=== PATIENT | male | born 1970 | race Caucasian/White ===

== ENCOUNTER 2020-02-18 11:55 | Inpatient (IN) | payer BC, SELFPAY ==
[2020-02-18] VITALS (8 sets, daily range): BP systolic 116–147; BP diastolic 67–90; PULSE 98–120; RESP 18–30; TEMP 36.8–38.7; O2SAT 83–93; BMI 31.6
--- NOTE | 2020-02-18 | XR_ITS ---
EXAMINATION: XR CHEST CLINICAL INFORMATION: SOB. COMPARISON: None TECHNIQUE: Frontal view of the chest was obtained. FINDINGS: Lungs are hypoexpanded with diffuse bilateral patchy opacities in middle and lower lobes. The heart size and pulmonary vascularity is normal. No gross bony abnormality seen. XR/XR chest 1V IMPRESSION: Diffuse bilateral patchy opacities in mid and lower lobes.
--- NOTE | 2020-02-18 | ECG_ITS ---
Test Reason : SOB Blood Pressure : / mmHG Vent. Rate : 097 BPM Atrial Rate : 097 BPM P-R Int : 138 ms QRS Dur : 086 ms QT Int : 346 ms P-R-T Axes : 044 -02 -12 degrees QTc Int : 439 ms Normal sinus rhythm Minimal voltage criteria for LVH, may be normal variant T wave abnormality, consider inferior ischemia Abnormal ECG No previous ECGs available Referred By: Generic ED Physician Electronically Signed By:ROXANA SILVA
[2020-02-18 13:05] LABS: Basophils Percent Auto 0.1 % (0-2); Hematocrit 45.1 % (42-52); Hemoglobin 15.5 g/dl (14.0-18.0); Imm Gran Abs Auto 0.07 X10*3/uL (0.00-0.03); Imm Gran Pct Auto 0.7 % (0.0-0.4); Lymphocytes Absolute Auto 0.6 X10*3/uL (1.2-4.9); MANUAL DIFF FLAG SCAN; Mean Corpuscular HGB Conc 34.4 g/dl (31.0-36.0); Mean Corpuscular Hemoglobin 29.3 pg (27.0-33.0); Mean Corpuscular Volume 85.3 fL (80-98); Mean Platelet Volume 9.4 fL (9.4-12.4); Monocytes Absolute Auto 0.4 X10*3/uL (0.1-1.2); Monocytes Percent Auto 3.5 % (2-11); Neutrophils Absolute Auto 9.6 X10*3/uL (2.0-8.3); Neutrophils Percent Auto 89.7 % (45-73); Platelet Count 301 X10*3/uL (160-400); Red Blood Count 5.29 X10*6/uL (4.60-5.80); Red Cell Distribution Width 12.7 % (11.0-16.0); SCAN SMEAR FLAG 1; White Blood Count 10.7 X10*3/uL (4.8-10.8)
[2020-02-18] MEDS: Azithromycin 500 MG TABLET PO (13:07)
[2020-02-18] MEDS: Acetaminophen 325 MG TABLET 650 MG PO (13:07)
[2020-02-18 13:14] LABS: INTERNATIONAL NORM RATIO 1.2 (0.9-1.1)
[2020-02-18 13:28] LABS: SLIDE REVIEW VERIFIED
[2020-02-18 13:31] LABS: Lactic Acid 3.6 mmol/L (0.5-2.0)
[2020-02-18 13:45] LABS: Alanine Aminotransferase 109 U/L (0-40); Alkaline Phosphatase 69 U/L (39-117); Anion Gap 18 (12-20); Aspartate Amino Transferase 61 U/L (5-37); Bilirubin Direct 0.4 mg/dL (0.0-0.5); Blood Urea Nitrogen 23 mg/dL (9-16); Calcium 8.4 mg/dL (8.4-10.2); Carbon Dioxide 21 mmol/L (22-29); Chloride 102 mmol/L (96-108); Creatinine Clr Calc Pharmacy 100.5; Estimated Glomerular Filt Rate > 60; Glucose Random 121 mg/dL (60-115); Potassium 5.2 mmol/l (3.3-5.1); Sodium 136 mmol/L (135-145); Total Protein 7.1 g/dL (6.5-8.0)
[2020-02-18 14:08] LABS: C Reactive Protein 4.75 mg/dL (< or = 0.50); Lactate Dehydrogenase 461 U/L (118-273)
[2020-02-18 14:13] LABS: D Dimer 525 NG/ML
--- NOTE | 2020-02-18 14:17 | ED_ITS ---
HPI - SOB/Dyspnea General Chief Complaint: Dyspnea Stated Complaint: covid + sob Time Seen by Provider: 02/18/20 13:00 Source: patient Mode of arrival: ambulatory History of Present Illness HPI Narrative: 49-year-old male with past medical history of asthma, COVID-19 positive on 02/13 at [facility], presenting to the ED complaining of worsening SOB, chest discomfort, cough, fever, body aches/chills, nausea/diarrhea x6 days. Patient has been on albuterol/nebulizers, and prednisone outpatient without relief. Denies abdominal pain, vomiting, recent travel, LE edema Suspected caught COVID from COVID-19 positive co-worker MD elicited complaint: shortness of breath and cough Related Data Allergies Allergy/AdvReac Type Severity Reaction Status Date / Time GRASS Allergy Unknown STUFFY NOSE Uncoded 02/18/20 12:37 Review of Systems Review of Systems: Constitutional: No Weight loss, + Fever, + Chills, No Night Sweats, + Fatigue, + Malaise ENT/Mouth: No sore throat, No Rhinorrhea, No Swallowing Difficulty Cardiovascular: + Chest Pain, + SOB, + Dyspnea on Exertion, No Orthopnea, No Edema, No Palpitations Respiratory: + Cough, No Sputum, No Wheezing, + Dyspnea Gastrointestinal: + Nausea, No Vomiting, + Diarrhea, No Constipation, No Abdominal pain Genitourinary: No irregular bleeding, No Dysuria, No Urinary Frequency, No Hematuria Musculoskeletal: No joint pain, + Myalgias, No Joint Swelling Skin: No Skin Lesions, No rash Yes all other systems are reviewed and are negative [facility] Past Medical History Attestation statement: The following information was validated with the patient. Medical History (Updated 02/18/20 @ 12:36 by Celia Singh RN) Asthma Social History Social History Smoking Status: Never smoker Use of substances other than those prescribed or required for medical reasons: No Advance Directives: No Advance Directives Information Provided: No Physical Exam Vital Signs: Vital Signs: Last Vital Signs Temp 101.2 F H 02/18/20 12:58 Pulse 120 H 02/18/20 12:58 Resp 30 H 02/18/20 12:34 BP 126/90 H 02/18/20 12:58 Pulse Ox 90 L 02/18/20 13:00 Body Mass Index 31.6 Const: General: cooperative Orientation/consciousness: patient oriented x3 Limitations: no limitations HENMT: Head: Yes normal to inspection Ears: hearing grossly normal bilaterally General nose exam: Normal external nose present Face and sinus: Yes normal facial exam Eyes: General: appearance normal, both eyes and all related structures EOM: EOMs intact bilaterally Neck: Neck: Yes normal visual inspection and Yes no meningeal signs Resp: Effort & Inspection: labored (Belly breathing), no stridor and tachypneic Auscultation: clear to auscultation bilaterally and crackles (Bibasilar) Cardio: Rate: regular rate and tachycardic Heart sounds: S1 normal heart sound present and S2 normal heart sound present GI: Inspection: Yes normal to inspection Palpation (GI): Soft to palpation, nontender, no guarding and not rigid Skin: Rashes: no rashes Wounds: no wounds Neuro: General: patient oriented x3 and no meningeal signs Extrem: Other: No LE edema or calf tenderness General: Yes normal to inspection Course Course Course Narrative: * no leukocytosis, lactic 3.6 > likely from albuterol and dehydration. Low concern for severe sepsis as viral source. Patient is known COVID-19 positive > holding on sepsis fluids due to COVID-19 infection * LDH/CRP elevated, AST/ALT elevated, d-dimer 525 as expected with COVID-19, low concern for PE at this time * Chest x-ray showing diffuse bilateral patchy opacities in mid and lower lobes > will cover with Ceftriaxone and Azithromycin MDM - SOB/Dyspnea MDM Narrative Medical decision making narrative: 49-year-old male with past medical history of asthma, COVID-19 positive on 02/13 at [facility], presenting to the ED complaining of worsening SOB, cough, fever, body aches/chills, nausea/diarrhea x6 days. On exam tachypneic, tachycardic, febrile, with increased work of breathing and bibasilar crackles, initially satting 83% on room air. Increase to 93% on 4L nasal cannula. Patient is talking in complete sentences with nasal cannula on. Low concern for severe sepsis is likely/known viral etiology/COVID- 19. Lower concern for PE Plan: EKG, labs, CXR, albuterol, magnesium, admission Lab Data Result diagrams: 02/18/20 12:52 02/18/20 12:52 Labs: Lab Results 02/18/20 02/18/20 02/18/20 Range/Units 12:52 12:52 12:52 WBC 10.7 (4.8-10.8) X10*3/uL RBC 5.29 (4.60-5.80) X10*6/uL Hgb 15.5 (14.0-18.0) g/dl Hct 45.1 (42-52) % MCV 85.3 (80-98) fL MCH 29.3 (27.0-33.0) pg MCHC 34.4 (31.0-36.0) g/dl RDW 12.7 (11.0-16.0) % Plt Count 301 (160-400) X10*3/uL MPV 9.4 (9.4-12.4) fL Immature Gran % (Auto) 0.7 H (0.0-0.4) % Neut % (Auto) 89.7 H (45-73) % Lymph % (Auto) 6.0 L (20-40) % Williams % (Auto) 3.5 (2-11) % Eos % (Auto) 0.0 (0-4) % Baso % (Auto) 0.1 (0-2) % Lymph # (Auto) 0.6 L (1.2-4.9) X10*3/uL Williams # (Auto) 0.4 (0.1-1.2) X10*3/uL Eos # (Auto) 0.0 (0.0-0.4) X10*3/uL Baso # (Auto) 0.0 (0.0-0.2) X10*3/uL Abs Immat Gran (auto) 0.07 H (0.00-0.03) X10*3/uL Absolute Neuts (auto) 9.6 H (2.0-8.3) X10*3/uL Absolute Nucleated RBC 0.000 (0.0-0.012) X10*3/uL Nucleated RBC % (auto) 0.0 (0.0-0.2) /100WBC Smear Tech's Comments VERIFIED PT 14.0 H (10.8-13.0) SEC INR 1.2 H (0.9-1.1) APTT 30.0 (24.1-38.0) SEC D-Dimer 525 NG/ML Sodium 136 (135-145) mmol/L Potassium 5.2 H (3.3-5.1) mmol/l Chloride 102 (96-108) mmol/L Carbon Dioxide 21 L (22-29) mmol/L Anion Gap 18 (12-20) BUN 23 H (9-16) mg/dL Creatinine 1.15 (0.5-1.4) mg/dL Estim Creat Clear Calc 100.5 Estimated GFR > 60 Random Glucose 121 H (60-115) mg/dL Lactic Acid (0.5-2.0) mmol/L Calcium 8.4 (8.4-10.2) mg/dL Ferritin 535 H (20-250) ng/mL Total Bilirubin 1.0 (0.0-1.0) mg/dL Direct Bilirubin 0.4 (0.0-0.5) mg/dL AST 61 H (5-37) U/L ALT 109 H (0-40) U/L Alkaline Phosphatase 69 (39-117) U/L Lactate Dehydrogenase 461 H (118-273) U/L C-Reactive Protein 4.75 H (< or = 0.50) mg/dL Total Protein 7.1 (6.5-8.0) g/dL Albumin 4.0 (3.5-5.0) g/dL Procalcitonin ng/mL 02/18/20 02/18/20 Range/Units 12:52 13:48 WBC (4.8-10.8) X10*3/uL RBC (4.60-5.80) X10*6/uL Hgb (14.0-18.0) g/dl Hct (42-52) % MCV (80-98) fL MCH (27.0-33.0) pg MCHC (31.0-36.0) g/dl RDW (11.0-16.0) % Plt Count (160-400) X10*3/uL MPV (9.4-12.4) fL Immature Gran % (Auto) (0.0-0.4) % Neut % (Auto) (45-73) % Lymph % (Auto) (20-40) % Williams % (Auto) (2-11) % Eos % (Auto) (0-4) % Baso % (Auto) (0-2) % Lymph # (Auto) (1.2-4.9) X10*3/uL Williams # (Auto) (0.1-1.2) X10*3/uL Eos # (Auto) (0.0-0.4) X10*3/uL Baso # (Auto) (0.0-0.2) X10*3/uL Abs Immat Gran (auto) (0.00-0.03) X10*3/uL Absolute Neuts (auto) (2.0-8.3) X10*3/uL Absolute Nucleated RBC (0.0-0.012) X10*3/uL Nucleated RBC % (auto) (0.0-0.2) /100WBC Smear Tech's Comments PT (10.8-13.0) SEC INR (0.9-1.1) APTT (24.1-38.0) SEC D-Dimer NG/ML Sodium (135-145) mmol/L Potassium (3.3-5.1) mmol/l Chloride (96-108) mmol/L Carbon Dioxide (22-29) mmol/L Anion Gap (12-20) BUN (9-16) mg/dL Creatinine (0.5-1.4) mg/dL Estim Creat Clear Calc Estimated GFR Random Glucose (60-115) mg/dL Lactic Acid 3.6 H* (0.5-2.0) mmol/L Calcium (8.4-10.2) mg/dL Ferritin (20-250) ng/mL Total Bilirubin (0.0-1.0) mg/dL Direct Bilirubin (0.0-0.5) mg/dL AST (5-37) U/L ALT (0-40) U/L Alkaline Phosphatase (39-117) U/L Lactate Dehydrogenase (118-273) U/L C-Reactive Protein (< or = 0.50) mg/dL Total Protein (6.5-8.0) g/dL Albumin (3.5-5.0) g/dL Procalcitonin 0.67 ng/mL
[2020-02-18 14:29] LABS: Ferritin 535 ng/mL (20-250)
[2020-02-18 14:34] LABS: Procalcitonin 0.67 ng/mL
[2020-02-18] MEDS: Magnesium Sulfate/H2O 2 GM/50 ML PIGGYBACK IV (14:56)
--- NOTE | 2020-02-18 15:00 | PC.NURSE ---
pt sleeping, respirations even and unlabored at this time, pt easily arousable, skin slightly flushed in the cheeks, sinus tach on the monitor 104 at this time, satting anywhere from 93-94% on 3l via nasal cannual. ls clear
[2020-02-18 15:03] LABS: Reflex Lactate? Lactic Acid Added
[2020-02-18] MEDS: cefTRIAXone sodium 1 GM in 0.9 % Sodium Chloride 50 ML IV (15:09)
[2020-02-18 15:14] LABS: Troponin-I High Sensitivity < 3.5 ng/L (<3.5-35.0)
--- NOTE | 2020-02-18 15:33 | PM.IMHP ---
History of Present Illness Date of Service: 02/18/20 <Anitha Mendoza NP - Last Filed: 02/18/20 15:52> Chief Complaint: Shortness of breath <Anitha Mendoza NP - Last Filed: 02/18/20 15:52> 49 year old man presenting with shortness of breath that started one week ago. He believes he was exposed to covid-19 from a coworker. He went to [facility] last Tuesday and had a covid test hat subsequently came back positive. He went to [facility] and was sent home with prednisone. He reported continuing shortness of breath over the last few days. He has a history of asthma. He reports dry cough, fever, heavy chest, nausea, diarrhea. In the ED, he had a fever of 101.7, and chest xray showed diffuse bilateral patchy opacities in mid and lower lobes. He was given dexamethasone, rocephin and azithromycin. He will be admitted with hypoxic respiratory failure secondary to covid 19. <Anitha Mendoza NP - Last Filed: 02/18/20 15:52> Review of Systems Review of Systems: Denies any recent fever chills or decrease in appetite respiratory See HPI cardiovascular is adjustment of any PND or edema gastrointestinal See HPI genitourinary denies any dysuria frequency or hematuria musculoskeletal denies any joint pain or swelling neuropsych denies any weakness or seizures all other systems reviewed are negative <Anitha Mendoza NP - Last Filed: 02/18/20 15:52> [facility] Medical History: Medical History Acute respiratory failure with hypoxia Asthma <Anitha Mendoza NP - Last Filed: 02/18/20 15:52> Pertinent family history: No cardiac disease <Anitha Mendoza NP - Last Filed: 02/18/20 15:52> Social History: Social History Smoking Status: Never smoker Use of substances other than those prescribed or required for medical reasons: No Currently Displaying Signs/Symptoms of Drug Intoxication Withdrawal: No Advance Directives: No Advance Directives Information Provided: No Do you have thoughts of harming others: None Do you have a plan to hurt others: No Plan service: No Current occupational status: employed <Anitha Mendoza NP - Last Filed: 02/18/20 15:52> Meds Allergies/Adverse reactions: Allergies Allergy/AdvReac Type Severity Reaction Status Date / Time GRASS Allergy Unknown STUFFY NOSE Uncoded 02/18/20 12:37 <Anitha Mendoza NP - Last Filed: 02/18/20 15:52> Home medications: Home Medications Medication Instructions Recorded Confirmed Type albuterol sulfate 2 puff INHALATION Q4H 02/18/20 02/18/20 History azithromycin 1 dose pk PO DIRECTED 02/18/20 02/18/20 History fluticasone furoate-vilanterol 1 inh INHALATION DAILY 02/18/20 02/18/20 History [Breo Ellipta] prednisone 5 tab PO DAILY 02/18/20 02/19/20 History tadalafil 1 tab PO NEEDED 02/18/20 02/18/20 History <Anitha Mendoza NP - Last Filed: 02/18/20 15:52> Physical Exam Vital Signs and Narrative: Vital Signs: Last Vital Signs Temp 99.7 F 02/18/20 14:57 Pulse 104 H 02/18/20 14:57 Resp 22 H 02/18/20 14:57 BP 116/67 02/18/20 14:57 Pulse Ox 93 02/18/20 14:57 Body Mass Index 31.6 <Anitha Mendoza NP - Last Filed: 02/18/20 15:52> Appearing in no acute distress head is normocephalic atraumatic eyes pupils are PERRLA sclera is anicteric mouth throat mucous membranes are intact and moist normal lung expansion heart regular rate rhythm abdomen nontender neuro patient is alert x3, no focal deficits <Anitha Mendoza NP - Last Filed: 02/18/20 15:52> Results Labs CBC and Chem 7: : 02/19/20 05:46 02/20/20 06:07 <Anitha Mendoza NP - Last Filed: 02/18/20 15:52> Labs: Laboratory Results - last 24 hr 02/18/20 02/18/20 02/18/20 12:52 12:52 12:52 MCV 85.3 MCH 29.3 MCHC 34.4 RDW 12.7 Plt Count 301 MPV 9.4 Immature Gran % (Auto) 0.7 H Neut % (Auto) 89.7 H Lymph % (Auto) 6.0 L [place] % (Auto) 3.5 Eos % (Auto) 0.0 Baso % (Auto) 0.1 Lymph # (Auto) 0.6 L [place] # (Auto) 0.4 Eos # (Auto) 0.0 Baso # (Auto) 0.0 Abs Immat Gran (auto) 0.07 H Absolute Neuts (auto) 9.6 H Absolute Nucleated RBC 0.000 Nucleated RBC % (auto) 0.0 Smear Tech's Comments VERIFIED PT 14.0 H INR 1.2 H APTT 30.0 D-Dimer 525 Anion Gap 18 Estim Creat Clear Calc 100.5 Estimated GFR > 60 Random Glucose 121 H Lactic Acid Calcium 8.4 Ferritin 535 H Total Bilirubin 1.0 Direct Bilirubin 0.4 AST 61 H ALT 109 H Alkaline Phosphatase 69 Lactate Dehydrogenase 461 H Troponin I High Sens C-Reactive Protein 4.75 H Total Protein 7.1 Albumin 4.0 Procalcitonin 02/18/20 02/18/20 02/18/20 12:52 13:28 13:48 MCV MCH MCHC RDW Plt Count MPV Immature Gran % (Auto) Neut % (Auto) Lymph % (Auto) [place] % (Auto) Eos % (Auto) Baso % (Auto) Lymph # (Auto) [place] # (Auto) Eos # (Auto) Baso # (Auto) Abs Immat Gran (auto) Absolute Neuts (auto) Absolute Nucleated RBC Nucleated RBC % (auto) Smear Tech's Comments PT INR APTT D-Dimer Anion Gap Estim Creat Clear Calc Estimated GFR Random Glucose Lactic Acid 3.6 H* Calcium Ferritin Total Bilirubin Direct Bilirubin AST ALT Alkaline Phosphatase Lactate Dehydrogenase Troponin I High Sens < 3.5 C-Reactive Protein Total Protein Albumin Procalcitonin 0.67 <Anitha Mendoza NP - Last Filed: 02/18/20 15:52> Imaging Radiologist's Impressions: Impressions Chest X-Ray 02/18/20 00:00 IMPRESSION: Diffuse bilateral patchy opacities in mid and lower lobes. <Anitha Mendoza NP - Last Filed: 02/18/20 15:52> Assessment and Plan (1) COVID-19: Problem details: This is COVID with recent onset of hypoxia He has no signs of bacterial pneumonia He has asthma as risk factor <Anitha Mendoza NP - Last Filed: 02/18/20 15:52> Status: Acute <Anitha Mendoza NP - Last Filed: 02/18/20 15:52> (2) Acute respiratory failure with hypoxia: Status: Acute <Anitha Mendoza NP - Last Filed: 02/18/20 15:52> 49 year old man admitted with acute hypoxic respiratory failure secondary to covid 19 Severe sepsis. Viral etiology. Leukocytosis, tachycardia, lactic acidosis. Follow blood cultures. Acute hypoxic respiratory failure secondary to covid 19. Steroids, supplemental oxygen, ID consult. ABX for consolidation. Isolation. Hyperkalemia. Mild. Follow BMP. Transaminitis. Viral related, covid-19. Follow LFT's. Asthma. No exacerbation. Albuterol as needed. DVT prophylaxis with Lovenox. Discussed with Dr. Rosas Full code. <Anitha Mendoza NP - Last Filed: 02/18/20 15:52>
[2020-02-18 15:42] LABS: ~Lactic Acid-LAB USE ONLY 2.6 mmol/L (0.5-2.0)
[2020-02-18] MEDS: Albuterol Sulfate 90 MCG 8 GM INHALER 4 PUFF INHALE (16:01)
--- NOTE | 2020-02-18 16:43 | PC.NURSE ---
pt resting more comfortably at this time. remains on 4L o2 with spo2 at 93%. reporting chest tightness from work of breathing and cough. some relief with inhaler. awaiting room assignment for transfer to floor.
[2020-02-18 17:10] LABS: COVID-19 Test Positive (Negative); IDNOW Serial# 9DD0AD1C
[2020-02-18 17:18] LABS: Reflex Lactate? 2 Y
--- NOTE | 2020-02-18 17:22 | PC.NURSE ---
report given to catrachito knox, awaiting for environmental to clean the room
[2020-02-18 18:27] LABS: ~Lactic Acid-LAB USE ONLY 3.1 mmol/L (0.5-2.0)
[2020-02-18] MEDS: 0.9 % Sodium Chloride Flush 3 ML SYRINGE IVFLUSH ×2 (18:53→23:46)
[2020-02-18] MEDS: Doxycycline Hyclate 100 MG in 0.9 % Sodium Chloride 250 ML 166.67 MG IV (19:50)
--- NOTE | 2020-02-18 21:34 | PM.EVENT ---
Event Note Date of Service: 02/18/20 Event Note: Addendum to H and P by Mid-level Provider I saw and examined the patient and participated in the gr portion of the E/M service. I agree with the history and exam as documented by LOADING UNIT OPERATOR CRIMPING. Patient likely has covid 19 associated acute hypoxic respiratory failure in the setting of asthma.. Will admit for management with bronchodilators, IV corticosteroid and close monitoring. Otherwise, I agree with assessment and plan as outlined in the H and P.
[2020-02-19] VITALS (7 sets, daily range): BP systolic 114–151; BP diastolic 73–90; PULSE 90–108; RESP 16–20; TEMP 36.7–37.7; O2SAT 90–95; BMI 31.6
[2020-02-19] MEDS: Acetaminophen 325 MG TABLET 650 MG PO (03:52)
--- NOTE | 2020-02-19 04:00 | MHC.PIE ---
p; pt coughing in bed, asking for cough syrup. note; no prn cough med? i; dr colon notified; no new orders at this time e; will cont to monitor
[2020-02-19] MEDS: guaiFEN/Codeine SF 200/20/10ML 10 ML LIQUID 5 ML PO ×3 (05:10→19:59)
[2020-02-19] MEDS: Doxycycline Hyclate 100 MG in 0.9 % Sodium Chloride 250 ML 166.7 MG IV (05:10)
[2020-02-19 06:37] LABS: MANUAL DIFF FLAG NO
[2020-02-19 06:50] LABS: Basophils Percent Auto 0.1 % (0-2); Hematocrit 43.5 % (42-52); Hemoglobin 14.8 g/dl (14.0-18.0); Imm Gran Abs Auto 0.08 X10*3/uL (0.00-0.03); Imm Gran Pct Auto 0.8 % (0.0-0.4); Lymphocytes Absolute Auto 0.8 X10*3/uL (1.2-4.9); Lymphocytes Percent Auto 7.9 % (20-40); Mean Corpuscular Hemoglobin 29.2 pg (27.0-33.0); Mean Corpuscular Volume 85.8 fL (80-98); Mean Platelet Volume 9.2 fL (9.4-12.4); Monocytes Absolute Auto 0.4 X10*3/uL (0.1-1.2); Monocytes Percent Auto 3.6 % (2-11); Neutrophils Absolute Auto 8.4 X10*3/uL (2.0-8.3); Neutrophils Percent Auto 87.6 % (45-73); Platelet Count 302 X10*3/uL (160-400); Red Blood Count 5.07 X10*6/uL (4.60-5.80); Red Cell Distribution Width 12.8 % (11.0-16.0); White Blood Count 9.6 X10*3/uL (4.8-10.8)
[2020-02-19 07:16] LABS: Chloride 103 mmol/L (96-108)
[2020-02-19 07:17] LABS: Anion Gap 16 (12-20); Blood Urea Nitrogen 21 mg/dL (9-16); Calcium 7.8 mg/dL (8.4-10.2); Carbon Dioxide 20 mmol/L (22-29); Estimated Glomerular Filt Rate > 60; Glucose Random 101 mg/dL (60-115); Potassium 4.5 mmol/l (3.3-5.1); Sodium 134 mmol/L (135-145)
[2020-02-19] MEDS: 0.9 % Sodium Chloride Flush 3 ML SYRINGE IVFLUSH ×2 (08:47→16:06)
[2020-02-19] MEDS: predniSONE 20 MG TABLET 40 MG PO (08:47)
--- NOTE | 2020-02-19 09:21 | MHC.CM.PN ---
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 The goal is for dc to home, no services, as before. CM has initiated and will follow for dc planning. PCP- Dr. Santiago Ramon.
[2020-02-19 09:33] LABS: Alanine Aminotransferase 77 U/L (0-40); Albumin Level 3.4 g/dL (3.5-5.0); Alkaline Phosphatase 59 U/L (39-117); Aspartate Amino Transferase 41 U/L (5-37); Bilirubin Direct 0.4 mg/dL (0.0-0.5); Bilirubin Total 0.8 mg/dL (0.0-1.0); Total Protein 6.1 g/dL (6.5-8.0)
[2020-02-19] MEDS: Remdesivir 200 MG in 0.9 % Sodium Chloride 210 ML 105 MG IV (13:36)
--- NOTE | 2020-02-19 17:30 | HO.PM.IMPN ---
Subjective Subjective Date of Service: 02/19/20 Interval History: COVID pneumonia. Review of Systems Patient still short of breath, denies any chest pain or abdominal pain feel tired. P.o. intake slowly improving. In Physical Exam Vital Signs: Vital Signs: Last Vital Signs Temp 98.1 F 02/19/20 15:37 Pulse 97 02/19/20 15:37 Resp 19 02/19/20 15:37 BP 130/79 02/19/20 15:37 Pulse Ox 91 L 02/19/20 15:37 Body Mass Index 31.6 Physical exam: Constitutional: Not in acute distress, seems generally weak. Cvs: rrr, [id number] , no murmur res: fair air entry , diminshed at bases. abd: no rebound or guarding ,nt, bs present. ext pulses present , no cyanosis neuro: axo3 , nonfocal. Objective Data Current Medications Generic Name Dose Route Start Last Admin Trade Name Freq PRN Reason Stop Dose Admin Acetaminophen 650 mg 02/18/20 18:26 02/19/20 03:52 Acetaminophen 325 Mg Tablet PO 650 mg Q6H PRN Administration Pain, Mild (Pain Scale 1-3) Albuterol Sulfate 2 puff 02/18/20 18:26 Albuterol Sulfate 90 Mcg 8 Gm Inhaler INHALE RQ4H PRN Wheezing Guaifenesin/Codeine Phosphate 5 ml 02/19/20 04:50 02/19/20 13:39 Guaifen/Codeine Sf 200/20/10ml 10 Ml Liquid PO 5 ml Q4H PRN Administration Cough Doxycycline Hyclate 100 mg/ 250 mls @ 166.67 mls/hr 02/18/20 19:00 02/19/20 06:48 Sodium Chloride IV Infused Q12H CARYL Infusion Remdesivir 100 mg/ Sodium 230 mls @ 115 mls/hr 02/20/20 14:00 Chloride IV Q24H CARYL Ondansetron HCl 4 mg 02/18/20 18:26 Ondansetron Hcl 4 Mg/2 Ml Vial IVPUSH Q8H PRN Nausea and Vomiting Pharmacy Consult 1 each 02/18/20 15:20 Consult Rx Perform Med Rec MISCELLANE ONCE PRN Consult order Prednisone 40 mg 02/19/20 09:00 02/19/20 08:47 Prednisone 20 Mg Tablet PO 40 mg DAILY CARYL Administration Sodium Chloride 3 ml 02/18/20 18:26 02/19/20 16:06 0.9 % Sodium Chloride Flush 3 Ml Syringe IVFLUSH 3 ml QSHIFT CARYL Administration Labs CBC & Chem 7: 02/19/20 05:46 02/19/20 05:46 Microbiology Microbiology Results: Microbiology 02/18/20 12:52 Blood - Venous Blood Culture - Preliminary No growth after 24 hours. 02/18/20 12:57 Blood - Venous Blood Culture - Preliminary No growth after 24 hours. Assessment and Plan (1) COVID-19: Status: Acute (2) Acute respiratory failure with hypoxia: Status: Acute Assessment and Plan: 49 year old man admitted with acute hypoxic respiratory failure secondary to covid 19 1.admitted with Acute hypoxemic respiratory failure/severe sepsis thought to be Viral etiology. tachycardia,lymphopenia , lactic acidosis , blood cultures-prelim @24 hr neg crp , procalcitonin elevated Patient does not have leukocytosis, tachypnea seems improvin Fever also improved Sepsis smith seems improving continue steriods , remdesvir , continue doxycycine , taper oxygen slowly. Id eval pending 2.Hyperkalemia: resolved . 3.Transaminitis. Viral related, covid-19. Follow LFT's. 4.Asthma. No exacerbation. Albuterol as needed. DVT prophylaxis with Lovenox.
[2020-02-19] MEDS: Doxycycline Hyclate 100 MG in 0.9 % Sodium Chloride 250 ML 166.67 MG IV (19:50)
--- NOTE | 2020-02-19 21:15 | W.PM.IDCN ---
History of Present Illness Data of Consult Service Date: 02/19/20 Requesting physician: Kishore Dyer Primary Care Provider: Santiago Ramon MD [facility] Reason for consult: hypoxia He presents with shortness of breath and myalgias He has positive COVID test 02/13 at [facility] He took Prednisone with no improvement His co worker has COVID Review of Systems Review of Systems: Yes all other systems are reviewed and are negative [facility] Past Medical History Medical History Acute respiratory failure with hypoxia Asthma Family History Family history: reviewed and not pertinent Social History Social History Smoking Status: Never smoker Use of substances other than those prescribed or required for medical reasons: No Currently Displaying Signs/Symptoms of Drug Intoxication Withdrawal: No Advance Directives: No Advance Directives Information Provided: No Do you have thoughts of harming others: None Do you have a plan to hurt others: No Plan service: No Current occupational status: employed Meds Allergies Allergy/AdvReac Type Severity Reaction Status Date / Time GRASS Allergy Unknown STUFFY NOSE Uncoded 02/18/20 12:37 Home Medications Medication Instructions Recorded Confirmed Type albuterol sulfate 2 puff INHALATION Q4H 02/18/20 02/18/20 History azithromycin 1 dose pk PO DIRECTED 02/18/20 02/18/20 History fluticasone furoate-vilanterol 1 inh INHALATION DAILY 02/18/20 02/18/20 History [Breo Ellipta] prednisone 5 tab PO DAILY 02/18/20 02/19/20 History tadalafil 1 tab PO NEEDED 02/18/20 02/18/20 History Physical Exam Vital Signs: Vital Signs: Last Vital Signs Temp 98.7 F 02/19/20 19:29 Pulse 98 02/19/20 19:29 Resp 18 02/19/20 19:29 BP 143/90 H 02/19/20 19:29 Pulse Ox 92 02/19/20 19:29 Body Mass Index 31.6 Const: General: cooperative HENMT: Head: Yes normal to inspection Eyes: General: appearance normal, both eyes and all related structures Resp: Effort & Inspection: normal respiratory effort Cardio: Rate: regular rate Rhythm: regular rhythm GI: Inspection: Yes normal to inspection Skin: General skin exam: no rashes or lesions noted Extrem: General: Yes normal to inspection Assessment and Plan (1) COVID-19: Problem details: This is COVID with recent onset of hypoxia He has no signs of bacterial pneumonia He has asthma as risk factor Status: Acute Would give Remdesivir and Dexamethasone 6 mg daily per protocol No antibiotics necessary and no convalescent plasma (2) Acute respiratory failure with hypoxia: Status: Acute Results Labs CBC & Chem 7: 02/19/20 05:46 02/19/20 05:46 Labs: Short CBC 02/19/20 Range/Units 05:46 WBC 9.6 (4.8-10.8) X10*3/uL Hgb 14.8 (14.0-18.0) g/dl Hct 43.5 (42-52) % Plt Count 302 (160-400) X10*3/uL BMP 02/19/20 05:46 Sodium 134 L Potassium 4.5 Chloride 103 Carbon Dioxide 20 L BUN 21 H Creatinine 0.82 Calcium 7.8 L D Liver Function 02/19/20 Range/Units 05:46 Total Bilirubin 0.8 (0.0-1.0) mg/dL Direct Bilirubin 0.4 (0.0-0.5) mg/dL AST 41 H (5-37) U/L ALT 77 H (0-40) U/L Alkaline Phosphatase 59 (39-117) U/L Albumin 3.4 L (3.5-5.0) g/dL Microbiology Microbiology Results: Microbiology 02/18/20 12:52 Blood - Venous Blood Culture - Preliminary No growth after 24 hours. 02/18/20 12:57 Blood - Venous Blood Culture - Preliminary No growth after 24 hours.
[2020-02-20] VITALS (18 sets, daily range): BP systolic 119–137; BP diastolic 69–84; PULSE 71–98; RESP 18–20; TEMP 36.7–37.3; O2SAT 85–98
[2020-02-20] MEDS: 0.9 % Sodium Chloride Flush 3 ML SYRINGE IVFLUSH ×3 (01:03→16:51)
--- NOTE | 2020-02-20 01:14 | PC.NURSE ---
pt was sating 88% on 3L n/c, titrated o2 n/c to 5L , pt is sating 90-93%, pt is unable to tolerate proning, pt turned to left side. respiratory therapy called to bedside, pt is comfortable and in no respiratory distress at this time, lungs are diminished in all lung chau, pt has a harsh intermittent cough. will cont to monitor and reassess.
--- NOTE | 2020-02-20 01:57 | PC.NURSE ---
pt sating 85% on 6L n/c, attepted to transition to venti mask 12L pt desated to 84%, NRB appled pt sating 88%-90% but not sustaining in the 90s, n/c applied with the NRB, pt sating 90-94%, MD dr ohara notfied, new orders for high flow, respiratory therapy notfied of order. will cont to monitor and reassess.
[2020-02-20] MEDS: Acetaminophen 325 MG TABLET 650 MG PO (04:40)
[2020-02-20] MEDS: guaiFEN/Codeine SF 200/20/10ML 10 ML LIQUID 5 ML PO ×2 (04:41→14:52)
[2020-02-20 07:20] LABS: Anion Gap 15 (12-20); Blood Urea Nitrogen 24 mg/dL (9-16); Calcium 7.8 mg/dL (8.4-10.2); Carbon Dioxide 23 mmol/L (22-29); Chloride 101 mmol/L (96-108); Creatinine Clr Calc Pharmacy 114.4; Estimated Glomerular Filt Rate > 60; Glucose Random 95 mg/dL (60-115); Potassium 4.5 mmol/l (3.3-5.1); Sodium 134 mmol/L (135-145)
[2020-02-20 07:59] LABS: C Reactive Protein 12.26 mg/dL (< or = 0.50)
[2020-02-20 08:02] LABS: Lactate Dehydrogenase 446 U/L (118-273)
[2020-02-20] MEDS: Doxycycline Hyclate 100 MG in 0.9 % Sodium Chloride 250 ML 166.67 MG IV ×2 (08:07→21:13)
[2020-02-20] MEDS: dexAMETHasone sod phosphate 4 MG/ML VIAL 6 MG IVPUSH (08:08)
[2020-02-20 08:21] LABS: Ferritin 711 ng/mL (20-250)
[2020-02-20 08:50] LABS: Hematocrit 42.6 % (42-52); Hemoglobin 14.5 g/dl (14.0-18.0); Mean Corpuscular Hemoglobin 29.5 pg (27.0-33.0); Mean Corpuscular Volume 86.8 fL (80-98); Mean Platelet Volume 9.3 fL (9.4-12.4); Platelet Count 343 X10*3/uL (160-400); Red Blood Count 4.91 X10*6/uL (4.60-5.80); Red Cell Distribution Width 12.9 % (11.0-16.0); White Blood Count 9.4 X10*3/uL (4.8-10.8)
[2020-02-20 08:52] LABS: INTERNATIONAL NORM RATIO 1.2 (0.9-1.1); Prothrombin Time 14.2 SEC (10.8-13.0)
[2020-02-20 08:55] LABS: D Dimer 452 NG/ML; Partial Thromboplastin Time 28.5 SEC (24.1-38.0)
[2020-02-20 08:56] LABS: Base Excess VBG -0.3 mmol/L; HCO3 VBG 24 mmol/L; PCO2 VBG 39 mmhg; PO2 VBG 39 mmhg; pH VBG 7.41 (7.32-7.43)
[2020-02-20] MEDS: Zinc Sulfate 220 MG CAPSULE PO (09:27)
[2020-02-20] MEDS: Enoxaparin Sodium 60 MG/0.6 ML SYRINGE SUBCUT ×2 (09:27→21:14)
[2020-02-20] MEDS: cefTRIAXone sodium 1 GM in 0.9 % Sodium Chloride 50 ML IV (09:51)
--- NOTE | 2020-02-20 12:48 | HO.PM.IMPN ---
Subjective Subjective Date of Service: 02/20/20 Interval History: covid pneumonia Review of Systems patient is sob , denies any chest pain or fever or chills or abd pain. Physical Exam Vital Signs: Vital Signs: Last Vital Signs Temp 98.0 F 02/20/20 11:54 Pulse 90 02/20/20 11:54 Resp 20 02/20/20 11:54 BP 133/84 02/20/20 11:54 Pulse Ox 94 02/20/20 11:54 Body Mass Index 31.6 Physical exam: Constitutional: on high flow , seems comfortable Cvs: rrr, [id number] , no murmur res: fair air netry , no rales or wheezing abd: no rebound or guarding ,nt, bs present. ext pulses present , no cyanosis neuro: axo3 , nonfocal. His Objective Data Current Medications Generic Name Dose Route Start Last Admin Trade Name Freq PRN Reason Stop Dose Admin Acetaminophen 650 mg 02/18/20 18:26 02/20/20 04:40 Acetaminophen 325 Mg Tablet PO 650 mg Q6H PRN Administration Pain, Mild (Pain Scale 1-3) Albuterol Sulfate 2 puff 02/18/20 18:26 Albuterol Sulfate 90 Mcg 8 Gm Inhaler INHALE RQ4H PRN Wheezing Dexamethasone Sodium Phosphate 6 mg 02/21/20 09:00 Dexamethasone Sod Phosphate 4 Mg/Ml Vial IVPUSH DAILY CARYL Enoxaparin Sodium 60 mg 02/20/20 08:45 02/20/20 09:27 Enoxaparin Sodium 60 Mg/0.6 Ml Syringe SUBCUT 60 mg Q12H CARYL Administration Famotidine 20 mg 02/20/20 21:00 Famotidine 20 Mg Tablet PO BEDTIME CARYL Guaifenesin/Codeine Phosphate 5 ml 02/19/20 04:50 02/20/20 04:41 Guaifen/Codeine Sf 200/20/10ml 10 Ml Liquid PO 5 ml Q4H PRN Administration Cough Doxycycline Hyclate 100 mg/ 250 mls @ 166.67 mls/hr 02/18/20 19:00 02/20/20 09:52 Sodium Chloride IV Infused Q12H CARYL Infusion Remdesivir 100 mg/ Sodium 230 mls @ 115 mls/hr 02/20/20 14:00 Chloride IV Q24H CARYL Ceftriaxone Sodium 1 gm/ 50 mls @ 100 mls/hr 02/20/20 08:45 02/20/20 10:40 Sodium Chloride IV Infused Q24H CARYL Infusion Melatonin 6 mg 02/20/20 21:00 Melatonin 3 Mg Tablet PO BEDTIME CARYL Ondansetron HCl 4 mg 02/18/20 18:26 Ondansetron Hcl 4 Mg/2 Ml Vial IVPUSH Q8H PRN Nausea and Vomiting Pharmacy Consult 1 each 02/18/20 15:20 Consult Rx Perform Med Rec MISCELLANE ONCE PRN Consult order Sodium Chloride 3 ml 02/18/20 18:26 02/20/20 08:08 0.9 % Sodium Chloride Flush 3 Ml Syringe IVFLUSH 3 ml QSHIFT CARYL Administration Zinc Sulfate 220 mg 02/20/20 09:00 02/20/20 09:27 Zinc Sulfate 220 Mg Capsule PO 220 mg DAILY CARYL Administration Labs CBC & Chem 7: 02/20/20 06:07 02/20/20 06:07 Microbiology Microbiology Results: Microbiology 02/18/20 12:52 Blood - Venous Blood Culture - Preliminary No growth after 24 hours. 02/18/20 12:57 Blood - Venous Blood Culture - Preliminary No growth after 24 hours. Assessment and Plan (1) COVID-19: Status: Acute (2) Acute respiratory failure with hypoxia: Status: Acute Assessment and Plan: 49 year old man admitted with acute hypoxic respiratory failure secondary to covid 19 1.admitted with Acute hypoxemic respiratory failure/severe sepsis thought to be Viral etiology. tachycardia seems improving , no fevers ,lymphopenia , lactic acidosis , blood cultures-prelim @24 hr neg crp , procalcitonin elevated Sepsis smith seems improving but hypoxemia worsening overnight. continue steriods , remdesvir , doxycycine , started on high-flow oxygen, lovonox . vbh: phseems fine , not retaining co2 crp, ferrtin ,ldh , elevated ddimer Id eval noted . pulm following 2.Hyperkalemia: resolved . 3.Transaminitis. Viral related, covid-19. Follow LFT's improing. 4.Asthma. No exacerbation. Albuterol as needed. DVT prophylaxis with Lovenox.
--- NOTE | 2020-02-20 12:51 | P.CONPL_ITS ---
History of Present Illness History of Present Illness Consult date: 02/20/20 Chief complaint: hypoxia Narrative: 49 year old man presenting with shortness of breath that started one week ago. He believes he was exposed to covid-19 from a coworker. He went to [facility] last Tuesday and had a covid test hat subsequently came back positive. He went to [facility] and was sent home with prednisone. He reported continuing shortness of breath over the last few days. He has a history of asthma. He reports dry cough, fever, heavy chest, nausea, diarrhea. In the ED, he had a fever of 101.7, and chest xray showed diffuse bilateral patchy opacities in mid and lower lobes. He was given dexamethasone, rocephin and azithromycin. He will be admitted with hypoxic respiratory failure secondary to covid 19. He was started on this severe in addition to Decadron. It appears that his respiratory status has worsened and has been on high-flow. He did have a repeat chest x-ray demonstrating extensive bilateral airspace disease. Review of Systems Constitutional: Constitutional: Reports fatigue, Reports headache(s) and Denies night sweats ENT: Denies change in voice, Reports headache(s), Denies lip swelling, Denies mouth pain, Reports nasal congestion, Reports nasal discharge and Denies tongue swelling Cardiovascular: Cardiovascular: Denies chest pain and Reports dyspnea Respiratory: Respiratory: Reports cough and Reports dyspnea Gastrointestinal: Gastrointestinal: Denies abdominal pain Musculoskeletal: Musculoskeletal: Denies no additional musculoskeletal complaints Neurologic: Denies Neuro-related abnormal movements and Reports headache(s) Psychiatric: Psychiatric: Denies no additional psychiatric complaints Endocrine: Endocrine: Reports fatigue Hematologic/Lymphatic: Hematologic/Lymphatic: Denies easy bleeding and Denies lymphadenopathy Allergic/Immunologic: Allergic/Immunologic: Denies lip swelling and Denies tongue swelling PMF Past Medical History Medical History Acute respiratory failure with hypoxia Asthma Family History Family history: reviewed and not pertinent Social History Social History Smoking Status: Never smoker Use of substances other than those prescribed or required for medical reasons: No Currently Displaying Signs/Symptoms of Drug Intoxication Withdrawal: No Advance Directives: No Advance Directives Information Provided: No Do you have thoughts of harming others: None Do you have a plan to hurt others: No Plan service: No Current occupational status: employed Meds Allergies Allergy/AdvReac Type Severity Reaction Status Date / Time GRASS Allergy Unknown STUFFY NOSE Uncoded 02/18/20 12:37 Home Medications Medication Instructions Recorded Confirmed Type albuterol sulfate 2 puff INHALATION Q4H 02/18/20 02/18/20 History azithromycin 1 dose pk PO DIRECTED 02/18/20 02/18/20 History fluticasone furoate-vilanterol 1 inh INHALATION DAILY 02/18/20 02/18/20 History [Breo Ellipta] prednisone 5 tab PO DAILY 02/18/20 02/19/20 History tadalafil 1 tab PO NEEDED 02/18/20 02/18/20 History Physical Exam Vital Signs: Vital Signs: Last Vital Signs Temp 98.0 F 02/20/20 11:54 Pulse 90 02/20/20 11:54 Resp 20 02/20/20 11:54 BP 133/84 02/20/20 11:54 Pulse Ox 94 02/20/20 11:54 Body Mass Index 31.6 Const: General: alert HENMT: General nose exam: Abnormal external nose present and Nasal discharge present Eyes: Pupils: Equal, round and reactive pupils present Neck: Neck: Yes normal visual inspection, Yes full ROM and Yes no lymphadenopathy Chest: Chest palpation & inspection: normal inspection of the chest Resp: Auscultation: diminished lung sounds Cardio: Rate: regular rate Rhythm: regular rhythm Heart sounds: S1 normal heart sound present and S2 normal heart sound present GI: Palpation (GI): Soft to palpation and nontender Auscultation: normal bowel sounds : General: Yes no CVA tenderness Back/Spine/Pelvis: Back: no CVA tenderness Skin: General skin exam: rashes and/or lesions noted Neuro: Cranial nerves: Yes Equal, round and reactive pupils present Results Laboratory Findings CBC and BMP: 02/20/20 06:07 02/20/20 06:07 ABG, PT/INR, D-dimer: PT/INR, D-dimer PT 14.2 SEC (10.8-13.0) H 02/20/20 08:11 INR 1.2 (0.9-1.1) H 02/20/20 08:11 D-Dimer 452 NG/ML 02/20/20 08:11 Abnormal lab findings: Abnormal Labs 02/18/20 02/18/20 02/18/20 12:52 12:52 12:52 MPV Immature Gran % (Auto) 0.7 H Neut % (Auto) 89.7 H Lymph % (Auto) 6.0 L Lymph # (Auto) 0.6 L Abs Immat Gran (auto) 0.07 H Absolute Neuts (auto) 9.6 H PT 14.0 H INR 1.2 H Sodium Potassium 5.2 H Carbon Dioxide 21 L BUN 23 H Random Glucose 121 H Lactic Acid Lactic Acid Fup @ 2Hr Lactic Acid Fup @ 4Hr Calcium Ferritin 535 H AST 61 H ALT 109 H Lactate Dehydrogenase 461 H C-Reactive Protein 4.75 H Total Protein Albumin COVID-19 (BAUTISTA) 02/18/20 02/18/20 02/18/20 12:52 15:08 16:40 MPV Immature Gran % (Auto) Neut % (Auto) Lymph % (Auto) Lymph # (Auto) Abs Immat Gran (auto) Absolute Neuts (auto) PT INR Sodium Potassium Carbon Dioxide BUN Random Glucose Lactic Acid 3.6 H* Lactic Acid Fup @ 2Hr 2.6 H* Lactic Acid Fup @ 4Hr Calcium Ferritin AST ALT Lactate Dehydrogenase C-Reactive Protein Total Protein Albumin COVID-19 (BAUTISTA) Positive A 02/18/20 02/19/20 02/19/20 17:36 05:46 05:46 MPV 9.2 L Immature Gran % (Auto) 0.8 H Neut % (Auto) 87.6 H Lymph % (Auto) 7.9 L Lymph # (Auto) 0.8 L Abs Immat Gran (auto) 0.08 H Absolute Neuts (auto) 8.4 H PT INR Sodium 134 L Potassium Carbon Dioxide 20 L BUN 21 H Random Glucose Lactic Acid Lactic Acid Fup @ 2Hr Lactic Acid Fup @ 4Hr 3.1 H* Calcium 7.8 L D Ferritin AST 41 H ALT 77 H Lactate Dehydrogenase C-Reactive Protein Total Protein 6.1 L Albumin 3.4 L COVID-19 (BAUTISTA) 02/20/20 02/20/20 02/20/20 06:07 06:07 08:11 MPV 9.3 L Immature Gran % (Auto) Neut % (Auto) Lymph % (Auto) Lymph # (Auto) Abs Immat Gran (auto) Absolute Neuts (auto) PT 14.2 H INR 1.2 H Sodium 134 L Potassium Carbon Dioxide BUN 24 H Random Glucose Lactic Acid Lactic Acid Fup @ 2Hr Lactic Acid Fup @ 4Hr Calcium 7.8 L Ferritin 711 H AST ALT Lactate Dehydrogenase 446 H C-Reactive Protein 12.26 H Total Protein Albumin COVID-19 (BAUTISTA) Microbiology: Microbiology 02/18/20 12:52 Blood - Venous Blood Culture - Preliminary No growth after 24 hours. 02/18/20 12:57 Blood - Venous Blood Culture - Preliminary No growth after 24 hours.
--- NOTE | 2020-02-20 13:56 | MHC.CM.PN ---
Male 49 dx COVID +. No change to DP. Home no services. Patient will arrange for transportation at [place].
--- NOTE | 2020-02-20 14:03 | CONS_ITS ---
DATE OF SERVICE: 02/20/2020 INDICATION: Worsening respiratory status secondary to COVID. HISTORY OF PRESENT ILLNESS: Mr. Mark is a 49-year-old gentleman, previously healthy, who apparently was in usual state of health until he was exposed to COVID little bit more than a week ago. He was evaluated at [facility] because of worsening respiratory symptoms. He was placed on prednisone and discharged home apparently just to treat the asthma. However, his respiratory symptoms continued to get worse. He also complained of cough, heaviness in the chest, and fevers. He went back to the ED with a temperature of 101.7. Also, had diffuse bilateral opacities. He was admitted to the hospital, placed on IV antibiotics, Decadron, and Remdesivir. He has had increased oxygen requirements, now on high-flow 55 L on 100%. The patient does feel comfortable right now. We did talk about proning. He is going to try to do that for a few hours. REVIEW OF SYSTEMS: Ten systems reviewed. Complains of the constitutional symptoms as stated above. Complains of the respiratory and cardiac symptoms as stated above. Denies any GI symptoms. Denies any symptoms. Complains of musculoskeletal weakness. The rest of the 10-organ system is negative. PAST MEDICAL HISTORY: Asthma. FAMILY HISTORY: Denies any underlying lung conditions. SOCIAL HISTORY: He is never smoker. ALLERGIES: JUST ENVIRONMENTAL ALLERGIES. MEDICATIONS: Please refer to the [facility] for the full list. He was on doxycycline in addition to Decadron and Remdesivir among others. PHYSICAL EXAMINATION: VITAL SIGNS: Stable. Saturating 94% on 55% high-flow. GENERAL: Pleasant gentleman, in no acute distress. HEENT: Pupils are equal and reactive to light. Oropharynx clear. NECK: Supple. LUNGS: Diminished bilaterally. CARDIAC: Regular rhythm, regular rate. No extra heart sounds. ABDOMEN: Positive bowel sounds. Soft. EXTREMITIES: No clubbing or cyanosis. LABORATORY DATA: His white count is normal. Hemoglobin is stable. He does have a decreased lymphocyte percentage. Coags: His last D-dimer was 452. Blood gas 7.41 with a pCO2 of 39, PaO2 only 39. Chemistry: Sodium 134, calcium 7.8, ferritin 711, lactate dehydrogenase of 466. C-reactive protein 12.26 elevated. COVID-19 was again confirmed positive on 02/17, although he had one prior to that was positive as well. IMAGING STUDIES: Demonstrating extensive bilateral airspace disease. ASSESSMENT: Mr. Mark is a 49-year-old gentleman with COVID-19 infection with acute respiratory failure. IMPRESSION: 1. COVID-19 infection. 2. Acute respiratory failure. 3. Pneumonia likely viral, although bacterial infections are still in differential as he has been ill for about a week or so. RECOMMENDATIONS: 1. Continue Remdesivir, continue Decadron. I will increase his Lovenox to twice a day because of his increased risk of microthrombi with the elevated D-dimer and his ongoing worsening respiratory failure, so therefore the recommendation is to increase it to 0.5 mg/kg twice a day. We will continue to monitor the D-dimer. 2. At this point, the patient should get a dose of convalescent plasma, it may not be as effective because of the duration of his illness, but he is getting worse. 3. Broaden antibiotic coverage for the worsening airspace disease. The patient will practice awake proning and further recommendations will be based on forthcoming data. MD GRETA Harkins/MODGonzalez / [id number] MTDD
[2020-02-20] MEDS: Remdesivir 100 MG in 0.9 % Sodium Chloride 230 ML 115 MG IV (14:52)
[2020-02-20] MEDS: Famotidine 20 MG TABLET PO (21:14)
[2020-02-20] MEDS: Melatonin 3 MG TABLET 6 MG PO (21:14)
[2020-02-21] VITALS (12 sets, daily range): BP systolic 114–147; BP diastolic 65–87; PULSE 59–85; RESP 19–22; TEMP 36.4–36.9; O2SAT 89–100
--- NOTE | 2020-02-21 | XR_ITS ---
EXAMINATION: XR CHEST CLINICAL INFORMATION: Covid Positive. COMPARISON: Chest 02/10/2020 TECHNIQUE: Frontal view of the chest was obtained. FINDINGS: Lungs are hyperexpanded diffuse patchy infiltrates throughout both lungs most prominent in the left parahilar upper midlung area. Heart size and vascularity is normal. No pleural effusion or pneumothorax. No gross bony abnormality. XR/XR chest 1V IMPRESSION: Interval worsening of infiltrates in both lungs especially left upper mid lung region.
[2020-02-21] MEDS: 0.9 % Sodium Chloride Flush 3 ML SYRINGE IVFLUSH ×4 (00:52→20:39)
[2020-02-21] MEDS: guaiFEN/Codeine SF 200/20/10ML 10 ML LIQUID 5 ML PO ×3 (01:03→17:50)
[2020-02-21] MEDS: Doxycycline Hyclate 100 MG in 0.9 % Sodium Chloride 250 ML 166.7 MG IV ×2 (06:33→18:46)
[2020-02-21 07:03] LABS: Anion Gap 15 (12-20); Blood Urea Nitrogen 25 mg/dL (9-16); Calcium 7.8 mg/dL (8.4-10.2); Carbon Dioxide 22 mmol/L (22-29); Chloride 103 mmol/L (96-108); Creatinine Clr Calc Pharmacy 144.5; Estimated Glomerular Filt Rate > 60; Glucose Random 89 mg/dL (60-115); Potassium 4.3 mmol/l (3.3-5.1); Sodium 136 mmol/L (135-145)
[2020-02-21 07:04] LABS: INTERNATIONAL NORM RATIO 1.1 (0.9-1.1); Prothrombin Time 13.6 SEC (10.8-13.0)
[2020-02-21 07:09] LABS: Hematocrit 40.7 % (42-52); Mean Corpuscular HGB Conc 34.4 g/dl (31.0-36.0); Mean Corpuscular Hemoglobin 29.2 pg (27.0-33.0); Mean Platelet Volume 9.4 fL (9.4-12.4); Platelet Count 354 X10*3/uL (160-400); Red Blood Count 4.79 X10*6/uL (4.60-5.80); Red Cell Distribution Width 12.6 % (11.0-16.0); White Blood Count 7.9 X10*3/uL (4.8-10.8)
[2020-02-21] MEDS: Zinc Sulfate 220 MG CAPSULE PO (08:14)
[2020-02-21] MEDS: cefTRIAXone sodium 1 GM in 0.9 % Sodium Chloride 50 ML IV (08:14)
[2020-02-21] MEDS: dexAMETHasone sod phosphate 4 MG/ML VIAL 6 MG IVPUSH ×2 (08:15→20:38)
[2020-02-21] MEDS: Enoxaparin Sodium 60 MG/0.6 ML SYRINGE SUBCUT ×2 (08:15→20:38)
--- NOTE | 2020-02-21 12:42 | HO.PM.IMPN ---
Subjective Subjective Date of Service: 02/21/20 Interval History: Acute hypoxemic respiratory failure probably due to COVID pneumonia. Review of Systems Patient still short of breath, denies any chest pain or abdominal pain or fever or chills. Physical Exam Vital Signs: Vital Signs: Last Vital Signs Temp 97.7 F 02/21/20 08:00 Pulse 84 02/21/20 08:00 Resp 20 02/21/20 11:10 BP 132/79 02/21/20 08:00 Pulse Ox 100 02/21/20 08:00 Body Mass Index 31.6 Physical exam: Constitutional: Not in acute distress. Cvs: rrr, [id number] , no murmur res: Fair air entry, diminished at bases. No rales or wheezing abd: no rebound or guarding ,nt, bs present. ext pulses present , no cyanosis neuro: axo3 , nonfocal. Objective Data Current Medications Generic Name Dose Route Start Last Admin Trade Name Freq PRN Reason Stop Dose Admin Acetaminophen 650 mg 02/18/20 18:26 02/20/20 04:40 Acetaminophen 325 Mg Tablet PO 650 mg Q6H PRN Administration Pain, Mild (Pain Scale 1-3) Albuterol Sulfate 2 puff 02/18/20 18:26 Albuterol Sulfate 90 Mcg 8 Gm Inhaler INHALE RQ4H PRN Wheezing Dexamethasone Sodium Phosphate 6 mg 02/21/20 09:00 02/21/20 08:15 Dexamethasone Sod Phosphate 4 Mg/Ml Vial IVPUSH 6 mg DAILY CARYL Administration Enoxaparin Sodium 60 mg 02/20/20 08:45 02/21/20 08:15 Enoxaparin Sodium 60 Mg/0.6 Ml Syringe SUBCUT 60 mg Q12H CARYL Administration Famotidine 20 mg 02/20/20 21:00 02/20/20 21:14 Famotidine 20 Mg Tablet PO 20 mg BEDTIME CARYL Administration Guaifenesin/Codeine Phosphate 5 ml 02/19/20 04:50 02/21/20 08:28 Guaifen/Codeine Sf 200/20/10ml 10 Ml Liquid PO 5 ml Q4H PRN Administration Cough Doxycycline Hyclate 100 mg/ 250 mls @ 166.67 mls/hr 02/18/20 19:00 02/21/20 08:26 Sodium Chloride IV Infused Q12H CARYL Infusion Remdesivir 100 mg/ Sodium 230 mls @ 115 mls/hr 02/20/20 14:00 02/20/20 16:51 Chloride IV Infused Q24H CARYL Infusion Ceftriaxone Sodium 1 gm/ 50 mls @ 100 mls/hr 02/20/20 08:45 02/21/20 09:09 Sodium Chloride IV Infused Q24H CARYL Infusion Melatonin 6 mg 02/20/20 21:00 02/20/20 21:14 Melatonin 3 Mg Tablet PO 6 mg BEDTIME CARYL Administration Ondansetron HCl 4 mg 02/18/20 18:26 Ondansetron Hcl 4 Mg/2 Ml Vial IVPUSH Q8H PRN Nausea and Vomiting Pharmacy Consult 1 each 02/18/20 15:20 Consult Rx Perform Med Rec MISCELLANE ONCE PRN Consult order Sodium Chloride 3 ml 02/18/20 18:26 02/21/20 08:14 0.9 % Sodium Chloride Flush 3 Ml Syringe IVFLUSH 3 ml QSHIFT CARYL Administration Zinc Sulfate 220 mg 02/20/20 09:00 02/21/20 08:14 Zinc Sulfate 220 Mg Capsule PO 220 mg DAILY CARYL Administration Labs CBC & Chem 7: 02/21/20 05:45 02/21/20 05:45 Microbiology Microbiology Results: Microbiology 02/18/20 12:52 Blood - Venous Blood Culture - Preliminary No growth after 48 hours. 02/18/20 12:57 Blood - Venous Blood Culture - Preliminary No growth after 48 hours. Assessment and Plan (1) COVID-19: Status: Acute (2) Acute respiratory failure with hypoxia: Status: Acute Assessment and Plan: 49 year old man admitted with acute hypoxic respiratory failure secondary to covid 19 1.admitted with Acute hypoxemic respiratory failure/severe sepsis thought to be Viral etiology. tachycardia and fevers seems improved. intially also had lymphopenia lactic acidosis , blood cultures- neg crp, ferrtin ,ldh , elevated ddimer procalcitonin elevated hypoxia similar as yesterday , but work of breathing seems slightly improving vbh: phseems fine , not retaining co2 yesterday cxr today-Interval worsening of infiltrates in both lungs especially left upper mid lung region. pulm -continue steriods , remdesvir , doxycycine , started on high-flow oxygen, lovonox . Patient received 1 dose of convalescent plasma yesterday, Pulmonary recommended another dose today- Which is ordered. 2.Hyperkalemia: resolved . 3.Transaminitis. Viral related, covid-19. Follow LFT's improing. 4.Asthma. No exacerbation. Albuterol as needed. DVT prophylaxis with Lovenox.
--- NOTE | 2020-02-21 13:07 | PM.PNPUL ---
Subjective Subjective Date of Service: 02/21/20 Interval history: The patient was seen on exam. Still on the high-flow. Tolerated the convalescent plasma 1st dose in will be getting 2nd dose today. Has had some increased shortness of breath. Repeat x-ray demonstrated interval worsening of the airspace disease. Objective Data Labs CBC & Chem 7: 02/21/20 05:45 02/21/20 05:45 Labs: Laboratory Results - last 24 hr 02/20/20 02/21/20 02/21/20 11:19 05:45 05:45 WBC 7.9 RBC 4.79 Hgb 14.0 Hct 40.7 L MCV 85.0 MCH 29.2 MCHC 34.4 RDW 12.6 Plt Count 354 MPV 9.4 Absolute Nucleated RBC 0.000 Nucleated RBC % (auto) 0.0 PT 13.6 H INR 1.1 Sodium Potassium Chloride Carbon Dioxide Anion Gap BUN Creatinine Estim Creat Clear Calc Estimated GFR Random Glucose Calcium Blood Type A Negative Antibody Screen NEGATIVE 02/21/20 05:45 WBC RBC Hgb Hct MCV MCH MCHC RDW Plt Count MPV Absolute Nucleated RBC Nucleated RBC % (auto) PT INR Sodium 136 Potassium 4.3 Chloride 103 Carbon Dioxide 22 Anion Gap 15 BUN 25 H Creatinine 0.80 Estim Creat Clear Calc 144.5 Estimated GFR > 60 Random Glucose 89 Calcium 7.8 L Blood Type Antibody Screen Microbiology Microbiology Results: Microbiology 02/18/20 12:52 Blood - Venous Blood Culture - Preliminary No growth after 48 hours. 02/18/20 12:57 Blood - Venous Blood Culture - Preliminary No growth after 48 hours. Review of Systems Review of Systems Denies any recent fever chills or decrease in appetite respiratory See HPI cardiovascular is adjustment of any PND or edema gastrointestinal See HPI genitourinary denies any dysuria frequency or hematuria musculoskeletal denies any joint pain or swelling neuropsych denies any weakness or seizures all other systems reviewed are negative Physical Exam Vital Signs: Vital Signs: Last Vital Signs Temp 97.7 F 02/21/20 08:00 Pulse 84 02/21/20 08:00 Resp 20 02/21/20 11:10 BP 132/79 02/21/20 08:00 Pulse Ox 100 02/21/20 08:00 Body Mass Index 31.6 Const: General: alert and lethargic Orientation/consciousness: lethargic HENMT: General nose exam: Abnormal external nose present and Nasal discharge present Eyes: Pupils: Equal, round and reactive pupils present Neck: Neck: Yes normal visual inspection, Yes full ROM and Yes no lymphadenopathy Chest: Chest palpation & inspection: normal inspection of the chest Resp: Auscultation: diminished lung sounds Cardio: Rate: regular rate Rhythm: regular rhythm Heart sounds: S1 normal heart sound present and S2 normal heart sound present GI: Palpation (GI): Soft to palpation and nontender Auscultation: normal bowel sounds : General: Yes no CVA tenderness Back/Spine/Pelvis: Back: no CVA tenderness Skin: General skin exam: rashes and/or lesions noted Neuro: Cranial nerves: Yes Equal, round and reactive pupils present Assessment and Plan Assessment and plan (1) COVID-19: Status: Acute Assessment and Plan: Continue remdesivir Increased dexamethasone to twice a day IV Second dose of convalescent plasma (2) Acute respiratory failure with hypoxia: Status: Acute Assessment and Plan: Continue high-flow Awake groaning Time Spent With Patient Time: Total time spent is greater than 50% in coordination of care (as documented) at patient's floor/unit and/or counseling patient: Time with patient: 15 - 24 minutes
[2020-02-21] MEDS: Remdesivir 100 MG in 0.9 % Sodium Chloride 230 ML 115 MG IV (14:32)
[2020-02-21] MEDS: Famotidine 20 MG TABLET PO (20:38)
[2020-02-21] MEDS: Melatonin 3 MG TABLET 6 MG PO (20:38)
[2020-02-22] VITALS (12 sets, daily range): BP systolic 118–139; BP diastolic 75–84; PULSE 58–88; RESP 18–22; TEMP 36.6–37.1; O2SAT 90–99
[2020-02-22] MEDS: Doxycycline Hyclate 100 MG in 0.9 % Sodium Chloride 250 ML 166.7 MG IV (06:22)
[2020-02-22] MEDS: cefTRIAXone sodium 1 GM in 0.9 % Sodium Chloride 50 ML IV (08:03)
[2020-02-22] MEDS: Enoxaparin Sodium 60 MG/0.6 ML SYRINGE SUBCUT ×2 (08:03→19:42)
[2020-02-22] MEDS: dexAMETHasone sod phosphate 4 MG/ML VIAL 6 MG IVPUSH ×2 (08:03→19:42)
[2020-02-22] MEDS: Zinc Sulfate 220 MG CAPSULE PO (08:04)
[2020-02-22] MEDS: 0.9 % Sodium Chloride Flush 3 ML SYRINGE IVFLUSH ×3 (08:05→19:43)
--- NOTE | 2020-02-22 08:11 | HO.PM.IMPN ---
Subjective Subjective Date of Service: 02/22/20 Interval History: hypoxia Review of Systems still sob , denies any chest pain , still sob , says work of breathing is slightly better than yesterday. Physical Exam Vital Signs: Vital Signs: Last Vital Signs Temp 97.9 F 02/22/20 04:00 Pulse 60 02/22/20 04:00 Resp 20 02/22/20 04:30 BP 129/80 02/22/20 04:00 Pulse Ox 97 02/22/20 04:00 Body Mass Index 31.6 Physical exam: Constitutional: Not in acute distress. Cvs: rrr, [id number] , no murmur res: Fair air entry, diminished at bases. No rales or wheezing abd: no rebound or guarding ,nt, bs present. ext pulses present , no cyanosis neuro: axo3 , nonfocal. Objective Data Current Medications Generic Name Dose Route Start Last Admin Trade Name Freq PRN Reason Stop Dose Admin Acetaminophen 650 mg 02/18/20 18:26 02/20/20 04:40 Acetaminophen 325 Mg Tablet PO 650 mg Q6H PRN Administration Pain, Mild (Pain Scale 1-3) Albuterol Sulfate 2 puff 02/18/20 18:26 Albuterol Sulfate 90 Mcg 8 Gm Inhaler INHALE RQ4H PRN Wheezing Dexamethasone Sodium Phosphate 6 mg 02/21/20 21:00 02/22/20 08:03 Dexamethasone Sod Phosphate 4 Mg/Ml Vial IVPUSH 6 mg BID CARYL Administration Enoxaparin Sodium 60 mg 02/20/20 08:45 02/22/20 08:03 Enoxaparin Sodium 60 Mg/0.6 Ml Syringe SUBCUT 60 mg Q12H CARYL Administration Famotidine 20 mg 02/20/20 21:00 02/21/20 20:38 Famotidine 20 Mg Tablet PO 20 mg BEDTIME CARYL Administration Guaifenesin/Codeine Phosphate 5 ml 02/19/20 04:50 02/21/20 17:50 Guaifen/Codeine Sf 200/20/10ml 10 Ml Liquid PO 5 ml Q4H PRN Administration Cough Doxycycline Hyclate 100 mg/ 250 mls @ 166.67 mls/hr 02/18/20 19:00 02/22/20 07:55 Sodium Chloride IV Infused Q12H CARYL Infusion Remdesivir 100 mg/ Sodium 230 mls @ 115 mls/hr 02/20/20 14:00 02/21/20 16:47 Chloride IV Infused Q24H CARYL Infusion Ceftriaxone Sodium 1 gm/ 50 mls @ 100 mls/hr 02/20/20 08:45 02/22/20 08:03 Sodium Chloride IV 100 mls/hr Q24H CARYL Administration Melatonin 6 mg 02/20/20 21:00 02/21/20 20:38 Melatonin 3 Mg Tablet PO 6 mg BEDTIME CARYL Administration Ondansetron HCl 4 mg 02/18/20 18:26 Ondansetron Hcl 4 Mg/2 Ml Vial IVPUSH Q8H PRN Nausea and Vomiting Pharmacy Consult 1 each 02/18/20 15:20 Consult Rx Perform Med Rec MISCELLANE ONCE PRN Consult order Sodium Chloride 3 ml 02/18/20 18:26 02/22/20 08:05 0.9 % Sodium Chloride Flush 3 Ml Syringe IVFLUSH 3 ml QSHIFT CARYL Administration Zinc Sulfate 220 mg 02/20/20 09:00 02/22/20 08:04 Zinc Sulfate 220 Mg Capsule PO 220 mg DAILY CARYL Administration Labs CBC & Chem 7: 02/21/20 05:45 02/22/20 06:23 Microbiology Microbiology Results: Microbiology 02/18/20 12:52 Blood - Venous Blood Culture - Preliminary No growth after 48 hours. 02/18/20 12:57 Blood - Venous Blood Culture - Preliminary No growth after 48 hours. Assessment and Plan (1) Acute respiratory failure with hypoxia: Status: Acute Assessment and Plan: 49 year old man admitted with acute hypoxic respiratory failure secondary to covid 19 1.admitted with Acute hypoxemic respiratory failure/severe sepsis thought to be Viral etiology. tachycardia and fevers seems improved. intially also had lymphopenia lactic acidosis blood cultures- neg crp, ferrtin ,ldh , elevated ddimer procalcitonin elevated hypoxia similar as yesterday , but work of breathing seems slightly improving preated crp today seems improving vbg: ph seems fine , not retaining co2 (2 days back) cxr today-Interval worsening of infiltrates in both lungs especially left upper mid lung region. pulm -continue steriods , remdesvir , doxycycine , started on high-flow oxygen, lovonox . Patient received 1 dose of convalescent plasma yesterday, Pulmonary recommended another dose today- Which is ordered. 2.Hyperkalemia: resolved . 3.Transaminitis. Viral related, covid-19. Follow LFT's improing, pending for today. 4.Asthma. No exacerbation. Albuterol as needed. DVT prophylaxis with Lovenox. (2) COVID-19: Status: Acute
[2020-02-22 08:13] LABS: Anion Gap 15 (12-20); Blood Urea Nitrogen 23 mg/dL (9-16); C Reactive Protein 3.12 mg/dL (< or = 0.50); Calcium 7.9 mg/dL (8.4-10.2); Carbon Dioxide 22 mmol/L (22-29); Chloride 102 mmol/L (96-108); Creatinine Clr Calc Pharmacy 152.1; Estimated Glomerular Filt Rate > 60; Glucose Random 103 mg/dL (60-115); Potassium 4.5 mmol/l (3.3-5.1); Sodium 134 mmol/L (135-145)
[2020-02-22] MEDS: guaiFEN/Codeine SF 200/20/10ML 10 ML LIQUID 5 ML PO ×2 (08:39→14:23)
[2020-02-22 12:33] LABS: Alanine Aminotransferase 50 U/L (0-40); Albumin Level 3.4 g/dL (3.5-5.0); Alkaline Phosphatase 62 U/L (39-117); Aspartate Amino Transferase 27 U/L (5-37); Bilirubin Direct 0.3 mg/dL (0.0-0.5); Bilirubin Total 0.5 mg/dL (0.0-1.0); Total Protein 6.2 g/dL (6.5-8.0)
--- NOTE | 2020-02-22 13:39 | P.PNPL_ITS ---
Subjective Subjective Date of Service: 02/22/20 Interval history: Seen and examined. Awaiting second dose of plasma. Seen and examined. Awaiting 2nd plasma. On remdisivir 3/5, lovenox, dex. With intervall worsening on the CXR. Clinically feeling ok. Objective Data Labs CBC & Chem 7: 02/21/20 05:45 02/22/20 06:23 Labs: Laboratory Results - last 24 hr 02/22/20 02/22/20 06:23 06:23 Sodium 134 L Potassium 4.5 Chloride 102 Carbon Dioxide 22 Anion Gap 15 BUN 23 H Creatinine 0.76 Estim Creat Clear Calc 152.1 Estimated GFR > 60 Random Glucose 103 Calcium 7.9 L Total Bilirubin 0.5 Direct Bilirubin 0.3 AST 27 ALT 50 H Alkaline Phosphatase 62 C-Reactive Protein 3.12 H Total Protein 6.2 L Albumin 3.4 L Microbiology Microbiology Results: Microbiology 02/18/20 12:52 Blood - Venous Blood Culture - Preliminary No growth after 48 hours. 02/18/20 12:57 Blood - Venous Blood Culture - Preliminary No growth after 48 hours. Review of Systems Review of Systems Denies any recent fever chills or decrease in appetite respiratory See HPI cardiovascular is adjustment of any PND or edema gastrointestinal See HPI genitourinary denies any dysuria frequency or hematuria musculoskeletal denies any joint pain or swelling neuropsych denies any weakness or seizures all other systems reviewed are negative Physical Exam Vital Signs: Vital Signs: Last Vital Signs Temp 98.0 F 02/22/20 08:00 Pulse 88 02/22/20 08:00 Resp 20 02/22/20 12:36 BP 119/75 02/22/20 08:00 Pulse Ox 97 02/22/20 08:00 Body Mass Index 31.6 Const: General: alert HENMT: General nose exam: Abnormal external nose present and Nasal discharge present Eyes: Pupils: Equal, round and reactive pupils present Neck: Neck: Yes normal visual inspection, Yes full ROM and Yes no l ymphadenopathy Chest: Chest palpation & inspection: normal inspection of the chest Resp: Auscultation: diminished lung sounds Cardio: Rate: regular rate Rhythm: regular rhythm Heart sounds: S1 normal heart sound present and S2 normal heart sound present GI: Palpation (GI): Soft to palpation and nontender Auscultation: normal bowel sounds : General: Yes no CVA tenderness Back/Spine/Pelvis: Back: no CVA tenderness Skin: General skin exam: rashes and/or lesions noted Neuro: Cranial nerves: Yes Equal, round and reactive pupils present Assessment and Plan Assessment and plan (1) COVID-19: Status: Acute Assessment and Plan: continue Remdisivir Steroids Lovenox BID Conv plasma x 2 (2) Acute respiratory failure with hypoxia: Status: Acute Assessment and Plan: Awake proning (3) Pneumonia due to 2019-nCoV: Status: Acute Assessment and Plan: Complete 8 days of abx and stop Time Spent With Patient Time: Total time spent is greater than 50% in coordination of care (as documented) at patient's floor/unit and/or counseling patient: Time with patient: 15 - 24 minutes
[2020-02-22] MEDS: Remdesivir 100 MG in 0.9 % Sodium Chloride 230 ML 115 MG IV (14:20)
[2020-02-22] MEDS: Acetaminophen 325 MG TABLET 650 MG PO (14:40)
[2020-02-22 17:59] LABS: Lactate Dehydrogenase 431 U/L (118-273)
[2020-02-22] MEDS: Famotidine 20 MG TABLET PO (19:43)
[2020-02-22] MEDS: Melatonin 3 MG TABLET 6 MG PO (19:43)
[2020-02-22] MEDS: Doxycycline Hyclate 100 MG in 0.9 % Sodium Chloride 250 ML 166.67 MG IV (19:43)
[2020-02-23] VITALS (14 sets, daily range): BP systolic 121–141; BP diastolic 65–82; PULSE 56–83; RESP 18–24; TEMP 36.6–37.4; O2SAT 90–97
[2020-02-23] MEDS: guaiFEN/Codeine SF 200/20/10ML 10 ML LIQUID 5 ML PO ×4 (03:02→21:14)
[2020-02-23] MEDS: Doxycycline Hyclate 100 MG in 0.9 % Sodium Chloride 250 ML 166.67 MG IV ×2 (06:17→18:22)
[2020-02-23 07:36] LABS: Anion Gap 15 (12-20); Blood Urea Nitrogen 19 mg/dL (9-16); Calcium 7.9 mg/dL (8.4-10.2); Carbon Dioxide 23 mmol/L (22-29); Chloride 101 mmol/L (96-108); Creatinine Clr Calc Pharmacy 156.2; Estimated Glomerular Filt Rate > 60; Glucose Random 93 mg/dL (60-115); Potassium 4.5 mmol/l (3.3-5.1); Sodium 134 mmol/L (135-145)
[2020-02-23] MEDS: Enoxaparin Sodium 60 MG/0.6 ML SYRINGE SUBCUT ×2 (08:57→21:13)
[2020-02-23] MEDS: dexAMETHasone sod phosphate 4 MG/ML VIAL 6 MG IVPUSH ×2 (08:57→21:14)
[2020-02-23] MEDS: cefTRIAXone sodium 1 GM in 0.9 % Sodium Chloride 50 ML IV (08:57)
[2020-02-23] MEDS: 0.9 % Sodium Chloride Flush 3 ML SYRINGE IVFLUSH ×3 (08:57→21:14)
[2020-02-23] MEDS: Famotidine 20 MG TABLET PO ×2 (08:58→21:13)
[2020-02-23] MEDS: Zinc Sulfate 220 MG CAPSULE PO (08:58)
[2020-02-23 10:38] LABS: Alanine Aminotransferase 57 U/L (0-40); Albumin Level 3.3 g/dL (3.5-5.0); Alkaline Phosphatase 61 U/L (39-117); Aspartate Amino Transferase 35 U/L (5-37); Bilirubin Direct 0.3 mg/dL (0.0-0.5); Bilirubin Total 0.6 mg/dL (0.0-1.0)
[2020-02-23] MEDS: Remdesivir 100 MG in 0.9 % Sodium Chloride 230 ML 115 MG IV (13:32)
--- NOTE | 2020-02-23 14:22 | HO.PM.IMPN ---
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 Denies any chest pain or abdominal pain or fever or chills Still has some cough Physical Exam Vital Signs: Vital Signs: Last Vital Signs Temp 98.4 F 02/23/20 11:44 Pulse 82 02/23/20 11:44 Resp 24 H 02/23/20 11:44 BP 121/69 02/23/20 11:44 Pulse Ox 90 L 02/23/20 11:44 Body Mass Index 31.6 Physical exam: heent: eyes anicteric, no discharge. Constitutional: Not in acute distress. Cvs: rrr, [id number] , no murmur res: Fair air entry, diminished at bases. No rales or wheezing abd: no rebound or guarding ,nt, bs present. ext pulses present , no cyanosis neuro: axo3 , nonfocal. Objective Data Current Medications Generic Name Dose Route Start Last Admin Trade Name Freq PRN Reason Stop Dose Admin Acetaminophen 650 mg 02/18/20 18:26 02/22/20 14:40 Acetaminophen 325 Mg Tablet PO 650 mg Q6H PRN Administration Pain, Mild (Pain Scale 1-3) Albuterol Sulfate 2 puff 02/18/20 18:26 Albuterol Sulfate 90 Mcg 8 Gm Inhaler INHALE RQ4H PRN Wheezing Dexamethasone Sodium Phosphate 6 mg 02/21/20 21:00 02/23/20 08:57 Dexamethasone Sod Phosphate 4 Mg/Ml Vial IVPUSH 6 mg BID CARYL Administration Enoxaparin Sodium 60 mg 02/20/20 08:45 02/23/20 08:57 Enoxaparin Sodium 60 Mg/0.6 Ml Syringe SUBCUT 60 mg Q12H CARYL Administration Famotidine 20 mg 02/22/20 21:00 02/23/20 08:58 Famotidine 20 Mg Tablet PO 20 mg BID CARYL Administration Guaifenesin/Codeine Phosphate 5 ml 02/19/20 04:50 02/23/20 12:57 Guaifen/Codeine Sf 200/20/10ml 10 Ml Liquid PO 5 ml Q4H PRN Administration Cough Doxycycline Hyclate 100 mg/ 250 mls @ 166.67 mls/hr 02/18/20 19:00 02/23/20 08:58 Sodium Chloride IV Infused Q12H CARYL Infusion Remdesivir 100 mg/ Sodium 230 mls @ 115 mls/hr 02/20/20 14:00 02/23/20 13:32 Chloride IV 115 mls/hr Q24H CARYL Administration Ceftriaxone Sodium 1 gm/ 50 mls @ 100 mls/hr 02/20/20 08:45 02/23/20 10:26 Sodium Chloride IV Infused Q24H CARYL Infusion Melatonin 6 mg 02/20/20 21:00 02/22/20 19:43 Melatonin 3 Mg Tablet PO 6 mg BEDTIME CARYL Administration Ondansetron HCl 4 mg 02/18/20 18:26 Ondansetron Hcl 4 Mg/2 Ml Vial IVPUSH Q8H PRN Nausea and Vomiting Pharmacy Consult 1 each 02/18/20 15:20 Consult Rx Perform Med Rec MISCELLANE ONCE PRN Consult order Sodium Chloride 3 ml 02/18/20 18:26 02/23/20 08:57 0.9 % Sodium Chloride Flush 3 Ml Syringe IVFLUSH 3 ml QSHIFT CARYL Administration Zinc Sulfate 220 mg 02/20/20 09:00 02/23/20 08:58 Zinc Sulfate 220 Mg Capsule PO 220 mg DAILY CARYL Administration Labs CBC & Chem 7: 02/21/20 05:45 02/23/20 06:14 Microbiology Microbiology Results: Microbiology 02/18/20 12:52 Blood - Venous Blood Culture - Preliminary No growth after 48 hours. 02/18/20 12:57 Blood - Venous Blood Culture - Preliminary No growth after 48 hours. Assessment and Plan (1) COVID-19: Status: Acute (2) Acute respiratory failure with hypoxia: Status: Acute Assessment and Plan: 49 year old man admitted with acute hypoxic respiratory failure secondary to covid 19 1.admitted with Acute hypoxemic respiratory failure/severe sepsis thought to be Viral etiology. tachycardia and fevers seems improved. intially also had lymphopenia lactic acidosis blood cultures- neg crp, ferrtin ,ldh , elevated ddimer procalcitonin elevated hypoxia similar, but work of breathing seems slowly improving preated crp today seems improving intial vbg: ph seems fine , not retaining co2 (2 days back) cxr today-Interval worsening of infiltrates in both lungs especially left upper mid lung region. pulm -continue steriods , remdesvir , doxycycine , started on high-flow oxygen, lovonox . Patient received 1 dose of convalescent plasma yesterday, Pulmonary recommended another dose today- Which is ordered. 2.Hyperkalemia: resolved . 3.Transaminitis. Viral related, covid-19. Follow LFT's improving similar as yesterday. 4.Asthma. No exacerbation. Albuterol as needed. DVT prophylaxis with Lovenox.
[2020-02-23] MEDS: Melatonin 3 MG TABLET 6 MG PO (21:13)
[2020-02-24] VITALS (12 sets, daily range): BP systolic 120–141; BP diastolic 78–87; PULSE 57–77; RESP 18–20; TEMP 36.5–37; O2SAT 92–98
[2020-02-24 07:14] LABS: Anion Gap 14 (12-20); Blood Urea Nitrogen 20 mg/dL (9-16); Carbon Dioxide 24 mmol/L (22-29); Chloride 101 mmol/L (96-108); Creatinine Clr Calc Pharmacy 146.3; Estimated Glomerular Filt Rate > 60; Glucose Random 113 mg/dL (60-115); Potassium 4.5 mmol/l (3.3-5.1); Sodium 134 mmol/L (135-145)
[2020-02-24 08:18] LABS: Alanine Aminotransferase 61 U/L (0-40); Albumin Level 3.4 g/dL (3.5-5.0); Alkaline Phosphatase 63 U/L (39-117); Aspartate Amino Transferase 31 U/L (5-37); Bilirubin Direct 0.4 mg/dL (0.0-0.5); Bilirubin Total 0.7 mg/dL (0.0-1.0); Total Protein 6.2 g/dL (6.5-8.0)
[2020-02-24] MEDS: Doxycycline Hyclate 100 MG in 0.9 % Sodium Chloride 250 ML 166.67 MG IV ×2 (08:20→19:18)
[2020-02-24] MEDS: Zinc Sulfate 220 MG CAPSULE PO (08:21)
[2020-02-24] MEDS: Famotidine 20 MG TABLET PO ×2 (08:21→20:58)
[2020-02-24] MEDS: 0.9 % Sodium Chloride Flush 3 ML SYRINGE IVFLUSH ×3 (08:21→19:24)
[2020-02-24] MEDS: dexAMETHasone sod phosphate 4 MG/ML VIAL 6 MG IVPUSH ×2 (08:21→20:58)
[2020-02-24] MEDS: Enoxaparin Sodium 60 MG/0.6 ML SYRINGE SUBCUT ×2 (08:21→20:58)
[2020-02-24] MEDS: cefTRIAXone sodium 1 GM in 0.9 % Sodium Chloride 50 ML IV (10:05)
--- NOTE | 2020-02-24 11:13 | HO.PM.IMPN ---
Subjective Subjective Date of Service: 02/24/20 Interval History: covid pneumonia Review of Systems Patient says shortness moving and work of breathing also improving Denies any abdominal pain or nausea or vomiting or fever or chills. Has cough Physical Exam Vital Signs: Vital Signs: Last Vital Signs Temp 98.6 F 02/24/20 03:27 Pulse 77 02/24/20 03:27 Resp 20 02/24/20 07:55 BP 141/86 H 02/24/20 03:27 Pulse Ox 92 02/24/20 03:27 Body Mass Index 31.6 Objective Data Current Medications Generic Name Dose Route Start Last Admin Trade Name Freq PRN Reason Stop Dose Admin Acetaminophen 650 mg 02/18/20 18:26 02/22/20 14:40 Acetaminophen 325 Mg Tablet PO 650 mg Q6H PRN Administration Pain, Mild (Pain Scale 1-3) Albuterol Sulfate 2 puff 02/18/20 18:26 Albuterol Sulfate 90 Mcg 8 Gm Inhaler INHALE RQ4H PRN Wheezing Dexamethasone Sodium Phosphate 6 mg 02/21/20 21:00 02/24/20 08:21 Dexamethasone Sod Phosphate 4 Mg/Ml Vial IVPUSH 6 mg BID CARYL Administration Enoxaparin Sodium 60 mg 02/20/20 08:45 02/24/20 08:21 Enoxaparin Sodium 60 Mg/0.6 Ml Syringe SUBCUT 60 mg Q12H CARYL Administration Famotidine 20 mg 02/22/20 21:00 02/24/20 08:21 Famotidine 20 Mg Tablet PO 20 mg BID CARYL Administration Doxycycline Hyclate 100 mg/ 250 mls @ 166.67 mls/hr 02/18/20 19:00 02/24/20 10:01 Sodium Chloride IV Infused Q12H CARYL Infusion Remdesivir 100 mg/ Sodium 230 mls @ 115 mls/hr 02/20/20 14:00 02/23/20 16:05 Chloride IV Infused Q24H CARYL Infusion Ceftriaxone Sodium 1 gm/ 50 mls @ 100 mls/hr 02/20/20 08:45 02/24/20 11:01 Sodium Chloride IV Infused Q24H CARYL Infusion Melatonin 6 mg 02/20/20 21:00 02/23/20 21:13 Melatonin 3 Mg Tablet PO 6 mg BEDTIME CARYL Administration Ondansetron HCl 4 mg 02/18/20 18:26 Ondansetron Hcl 4 Mg/2 Ml Vial IVPUSH Q8H PRN Nausea and Vomiting Pharmacy Consult 1 each 02/18/20 15:20 Consult Rx Perform Med Rec MISCELLANE ONCE PRN Consult order Sodium Chloride 3 ml 02/18/20 18:26 02/24/20 08:21 0.9 % Sodium Chloride Flush 3 Ml Syringe IVFLUSH 3 ml QSHIFT CARYL Administration Zinc Sulfate 220 mg 02/20/20 09:00 02/24/20 08:21 Zinc Sulfate 220 Mg Capsule PO 220 mg DAILY CARYL Administration Labs CBC & Chem 7: 02/21/20 05:45 02/24/20 06:13 Microbiology Microbiology Results: Microbiology 02/18/20 12:52 Blood - Venous Blood Culture - Final No growth after 5 days. 02/18/20 12:57 Blood - Venous Blood Culture - Final No growth after 5 days. Assessment and Plan (1) COVID-19: Status: Acute (2) Pneumonia due to 2019-nCoV: Status: Acute Assessment and Plan: 49 year old man admitted with acute hypoxic respiratory failure secondary to covid 19 1.admitted with Acute hypoxemic respiratory failure/severe sepsis thought to be Viral etiology. tachycardia and fevers seems improved. intially also had lymphopenia lactic acidosis blood cultures- neg crp, ferrtin ,ldh , elevated ddimer procalcitonin elevated hypoxia similar, but work of breathing seems slowly improving preated crp today seems improving intial vbg: ph seems fine , not retaining co2 (2 days back) cxr -Interval worsening of infiltrates in both lungs especially left upper mid lung region. pulm -continue dexamethsone6 mg bid , remdesvir , ceftriaxone/doxycycine , started on high-flow oxygen, lovonox . in addition s/p convalesent 2 plasma given 2.Hyperkalemia: resolved . 3.Transaminitis. Viral related, covid-19. Follow LFT's improving similar as yesterday. 4.Asthma. No exacerbation. Albuterol as needed. DVT prophylaxis with Lovenox.
[2020-02-24] MEDS: guaiFEN/Codeine SF 200/20/10ML 10 ML LIQUID 5 ML PO ×3 (12:07→19:17)
[2020-02-24] MEDS: Remdesivir 100 MG in 0.9 % Sodium Chloride 230 ML 115 MG IV (15:02)
[2020-02-24] MEDS: Melatonin 3 MG TABLET 6 MG PO (20:58)
[2020-02-25] VITALS (11 sets, daily range): BP systolic 121–140; BP diastolic 58–88; PULSE 53–78; RESP 18–20; TEMP 36.3–37.1; O2SAT 90–97
[2020-02-25] MEDS: guaiFEN/Codeine SF 200/20/10ML 10 ML LIQUID 5 ML PO ×6 (00:22→21:07)
[2020-02-25] MEDS: Doxycycline Hyclate 100 MG in 0.9 % Sodium Chloride 250 ML 166.67 MG IV ×2 (06:03→21:07)
[2020-02-25 06:49] LABS: Hematocrit 40.8 % (42-52); Hemoglobin 14.2 g/dl (14.0-18.0); Mean Corpuscular HGB Conc 34.8 g/dl (31.0-36.0); Mean Corpuscular Hemoglobin 29.5 pg (27.0-33.0); Mean Corpuscular Volume 84.8 fL (80-98); Mean Platelet Volume 9.4 fL (9.4-12.4); Platelet Count 404 X10*3/uL (160-400); Red Blood Count 4.81 X10*6/uL (4.60-5.80); Red Cell Distribution Width 12.2 % (11.0-16.0); White Blood Count 8.4 X10*3/uL (4.8-10.8)
[2020-02-25 07:21] LABS: Alanine Aminotransferase 53 U/L (0-40); Albumin Level 3.3 g/dL (3.5-5.0); Alkaline Phosphatase 55 U/L (39-117); Anion Gap 16 (12-20); Aspartate Amino Transferase 24 U/L (5-37); Bilirubin Direct 0.3 mg/dL (0.0-0.5); Bilirubin Total 0.5 mg/dL (0.0-1.0); Blood Urea Nitrogen 21 mg/dL (9-16); Calcium 8.2 mg/dL (8.4-10.2); Carbon Dioxide 22 mmol/L (22-29); Chloride 102 mmol/L (96-108); Creatinine Clr Calc Pharmacy 152.1; Estimated Glomerular Filt Rate > 60; Glucose Random 120 mg/dL (60-115); Potassium 4.8 mmol/l (3.3-5.1); Sodium 135 mmol/L (135-145); Total Protein 6.3 g/dL (6.5-8.0)
[2020-02-25] MEDS: 0.9 % Sodium Chloride Flush 3 ML SYRINGE IVFLUSH ×3 (08:31→21:08)
[2020-02-25] MEDS: cefTRIAXone sodium 1 GM in 0.9 % Sodium Chloride 50 ML IV (08:33)
[2020-02-25] MEDS: dexAMETHasone sod phosphate 4 MG/ML VIAL 6 MG IVPUSH (08:34)
[2020-02-25] MEDS: Zinc Sulfate 220 MG CAPSULE PO (08:34)
[2020-02-25] MEDS: Famotidine 20 MG TABLET PO ×2 (08:34→21:07)
[2020-02-25] MEDS: Enoxaparin Sodium 60 MG/0.6 ML SYRINGE SUBCUT ×2 (08:34→21:06)
--- NOTE | 2020-02-25 12:10 | MHC.CM.PN ---
DP Male 49 DX COVID+. DP home no services Private transport. Continued length of stay r/t need for IV medication administration. Pt continues on IV ABX, Remdesivir, and Decadron. CM will follow.
--- NOTE | 2020-02-25 13:53 | P.PNIM_ITS ---
Subjective Subjective Date of Service: 02/25/20 Interval History: On 60% fiO2 at 40 Lpm. Desaturates with ambulation. States he's comfortable. No fever. No chest pain. Physical Exam Vital Signs: Vital Signs: Last Vital Signs Temp 97.3 F 02/25/20 13:47 Pulse 78 02/25/20 13:47 Resp 18 02/25/20 13:47 BP 133/69 02/25/20 13:47 Pulse Ox 96 02/25/20 13:47 Body Mass Index 31.6 Gen: in no acute distress HEENT: sclera anicteric, moist mucus membranes Neck: supple Lungs: no respiratory distress, auscultation deferred due to COVID-19 Heart: normal peripheral pulses Abd: soft, non-tender, non-distended Ext: no cyanosis, clubbing, or edema Skin: warm/well-perfused Neuro: alert and oriented x3, no focal findings Psych: appropriate affect Objective Data Current Medications Generic Name Dose Route Start Last Admin Trade Name Freq PRN Reason Stop Dose Admin Acetaminophen 650 mg 02/18/20 18:26 02/22/20 14:40 Acetaminophen 325 Mg Tablet PO 650 mg Q6H PRN Administration Pain, Mild (Pain Scale 1-3) Albuterol Sulfate 2 puff 02/18/20 18:26 Albuterol Sulfate 90 Mcg 8 Gm Inhaler INHALE RQ4H PRN Wheezing Dexamethasone Sodium Phosphate 6 mg 02/21/20 21:00 02/25/20 08:34 Dexamethasone Sod Phosphate 4 Mg/Ml Vial IVPUSH 6 mg BID CARYL Administration Enoxaparin Sodium 60 mg 02/20/20 08:45 02/25/20 08:34 Enoxaparin Sodium 60 Mg/0.6 Ml Syringe SUBCUT 60 mg Q12H CARYL Administration Famotidine 20 mg 02/22/20 21:00 02/25/20 08:34 Famotidine 20 Mg Tablet PO 20 mg BID CARYL Administration Guaifenesin/Codeine Phosphate 5 ml 02/24/20 12:00 02/25/20 11:09 Guaifen/Codeine Sf 200/20/10ml 10 Ml Liquid PO 5 ml Q4H CARYL Administration Doxycycline Hyclate 100 mg/ 250 mls @ 166.67 mls/hr 02/18/20 19:00 02/25/20 08:46 Sodium Chloride IV Infused Q12H CARYL Infusion Remdesivir 100 mg/ Sodium 230 mls @ 115 mls/hr 02/20/20 14:00 02/24/20 19:17 Chloride IV Infused Q24H CARYL Infusion Ceftriaxone Sodium 1 gm/ 50 mls @ 100 mls/hr 02/20/20 08:45 02/25/20 11:09 Sodium Chloride IV Infused Q24H CARYL Infusion Melatonin 6 mg 02/20/20 21:00 02/24/20 20:58 Melatonin 3 Mg Tablet PO 6 mg BEDTIME CARYL Administration Ondansetron HCl 4 mg 02/18/20 18:26 Ondansetron Hcl 4 Mg/2 Ml Vial IVPUSH Q8H PRN Nausea and Vomiting Pharmacy Consult 1 each 02/18/20 15:20 Consult Rx Perform Med Rec MISCELLANE ONCE PRN Consult order Sodium Chloride 3 ml 02/18/20 18:26 02/25/20 08:31 0.9 % Sodium Chloride Flush 3 Ml Syringe IVFLUSH 3 ml QSHIFT CARYL Administration Zinc Sulfate 220 mg 02/20/20 09:00 02/25/20 08:34 Zinc Sulfate 220 Mg Capsule PO 220 mg DAILY CARYL Administration Labs CBC & Chem 7: 02/25/20 06:12 02/25/20 06:12 Labs: Laboratory Results - last 24 hr 02/25/20 02/25/20 06:12 06:12 WBC 8.4 RBC 4.81 Hgb 14.2 Hct 40.8 L MCV 84.8 MCH 29.5 MCHC 34.8 RDW 12.2 Plt Count 404 H MPV 9.4 Absolute Nucleated RBC 0.000 Nucleated RBC % (auto) 0.0 Sodium 135 Potassium 4.8 Chloride 102 Carbon Dioxide 22 Anion Gap 16 BUN 21 H Creatinine 0.76 Estim Creat Clear Calc 152.1 Estimated GFR > 60 Random Glucose 120 H Calcium 8.2 L Total Bilirubin 0.5 Direct Bilirubin 0.3 AST 24 ALT 53 H Alkaline Phosphatase 55 Total Protein 6.3 L Albumin 3.3 L Microbiology Microbiology Results: Microbiology 02/18/20 12:52 Blood - Venous Blood Culture - Final No growth after 5 days. 02/18/20 12:57 Blood - Venous Blood Culture - Final No growth after 5 days. Assessment and Plan (1) COVID-19: Status: Acute (2) Pneumonia due to 2019-nCoV: Status: Acute Assessment and Plan: hospital d#8 49yo M with asthma admitted for acute hypoxic respiratory failure due to COVID- 19 pneumonia # severe COVID-19 pneumonia # acute hypoxic respiratory failure # viral sepsis - supplemental O2 via HFNC, wean as tolerated, encouraged awake proning - dexamethasone d#08/30 - remdesivir d#/ - s/p convalescent plasma x2 units 02/19 and 02/22 - on intermediate-dose LMWH 0.5 mg/kg q12h per Pulmonology - trend inflammatory markers # transaminasemia - mild, improving, likely due to COVID-19 # hyperK - resolved # asthma - prn DEISY via HFA
[2020-02-25] MEDS: Remdesivir 100 MG in 0.9 % Sodium Chloride 230 ML 115 MG IV (15:35)
[2020-02-25] MEDS: Melatonin 3 MG TABLET 6 MG PO (21:07)
[2020-02-26] MEDS: guaiFEN/Codeine SF 200/20/10ML 10 ML LIQUID 5 ML PO ×6 (01:05→21:00)
[2020-02-26 04:00] VITALS: BP 117/73; PULSE 54; RESP 18; TEMP 36.4; O2SAT 99
[2020-02-26 06:58] LABS: MANUAL DIFF FLAG NO
[2020-02-26 07:20] LABS: Basophils Percent Auto 0.1 % (0-2); Eosinophils Absolute Auto 0.1 X10*3/uL (0.0-0.4); Eosinophils Percent Auto 0.9 % (0-4); Hematocrit 40.7 % (42-52); Hemoglobin 13.9 g/dl (14.0-18.0); Imm Gran Abs Auto 0.07 X10*3/uL (0.00-0.03); Imm Gran Pct Auto 0.9 % (0.0-0.4); Lymphocytes Absolute Auto 1.7 X10*3/uL (1.2-4.9); Lymphocytes Percent Auto 21.7 % (20-40); Mean Corpuscular HGB Conc 34.2 g/dl (31.0-36.0); Mean Platelet Volume 9.6 fL (9.4-12.4); Monocytes Absolute Auto 0.6 X10*3/uL (0.1-1.2); Monocytes Percent Auto 7.5 % (2-11); Neutrophils Absolute Auto 5.5 X10*3/uL (2.0-8.3); Neutrophils Percent Auto 68.9 % (45-73); Platelet Count 442 X10*3/uL (160-400); Red Blood Count 4.79 X10*6/uL (4.60-5.80); Red Cell Distribution Width 12.4 % (11.0-16.0)
[2020-02-26 07:22] LABS: D Dimer 469 NG/ML
[2020-02-26] MEDS: 0.9 % Sodium Chloride Flush 3 ML SYRINGE IVFLUSH ×2 (07:23→15:49)
[2020-02-26] MEDS: dexAMETHasone sod phosphate 4 MG/ML VIAL 6 MG IVPUSH (07:24)
[2020-02-26] MEDS: Enoxaparin Sodium 60 MG/0.6 ML SYRINGE SUBCUT ×2 (07:24→21:01)
[2020-02-26] MEDS: cefTRIAXone sodium 1 GM in 0.9 % Sodium Chloride 50 ML IV (07:24)
[2020-02-26] MEDS: Famotidine 20 MG TABLET PO ×2 (07:25→21:00)
[2020-02-26] MEDS: Zinc Sulfate 220 MG CAPSULE PO (07:25)
[2020-02-26 07:37] LABS: Alanine Aminotransferase 62 U/L (0-40); Alkaline Phosphatase 53 U/L (39-117); Anion Gap 13 (12-20); Aspartate Amino Transferase 28 U/L (5-37); Bilirubin Total 0.5 mg/dL (0.0-1.0); Blood Urea Nitrogen 22 mg/dL (9-16); C Reactive Protein 1.17 mg/dL (< or = 0.50); Carbon Dioxide 25 mmol/L (22-29); Chloride 103 mmol/L (96-108); Creatinine Clr Calc Pharmacy 139.3; Estimated Glomerular Filt Rate > 60; Glucose Random 91 mg/dL (60-115); Lactate Dehydrogenase 243 U/L (118-273); Potassium 4.5 mmol/l (3.3-5.1); Sodium 136 mmol/L (135-145); Total Protein 5.7 g/dL (6.5-8.0)
[2020-02-26 07:51] LABS: Procalcitonin 0.05 ng/mL
[2020-02-26 08:00] VITALS: BP 113/77; PULSE 60; RESP 20; TEMP 36.2; O2SAT 95
--- NOTE | 2020-02-26 08:16 | PC.NURSE ---
Pt weaned from 5L O2 via oxymizer to 4L O2 via NC with good response. O2 sats 94-95% . Will continue to monitor.
[2020-02-26 09:51] LABS: Ferritin 597 ng/mL (20-250)
--- NOTE | 2020-02-26 11:49 | MHC.CLN ---
F/U PO INTAKE 100% DIET RX: REGULAR-APPROPRIATE WILL START ENSURE BID TO INCREASE KCALS AND PO PROTEIN R/T COVID FOLLOWING
--- NOTE | 2020-02-26 11:52 | P.PNIM_ITS ---
Subjective Subjective Date of Service: 02/26/20 Interval History: Feels much better. Weaned from HFNC to regular NC at 4 Lpm. No fever. No chest pain. Dyspnea improved. Physical Exam Vital Signs: Vital Signs: Last Vital Signs Temp 97.2 F 02/26/20 08:00 Pulse 60 02/26/20 08:00 Resp 20 02/26/20 08:00 BP 113/77 02/26/20 08:00 Pulse Ox 95 02/26/20 08:00 Body Mass Index 31.6 Gen: in no acute distress HEENT: sclera anicteric, moist mucus membranes Neck: supple Lungs: no respiratory distress, auscultation deferred due to COVID-19 Heart: normal peripheral pulses Abd: soft, non-tender, non-distended Ext: no cyanosis, clubbing, or edema Skin: warm/well-perfused Neuro: alert and oriented x3, no focal findings Psych: appropriate affect Objective Data Current Medications Generic Name Dose Route Start Last Admin Trade Name Freq PRN Reason Stop Dose Admin Acetaminophen 650 mg 02/18/20 18:26 02/22/20 14:40 Acetaminophen 325 Mg Tablet PO 650 mg Q6H PRN Administration Pain, Mild (Pain Scale 1-3) Albuterol Sulfate 2 puff 02/18/20 18:26 Albuterol Sulfate 90 Mcg 8 Gm Inhaler INHALE RQ4H PRN Wheezing Dexamethasone Sodium Phosphate 6 mg 02/26/20 09:00 02/26/20 07:24 Dexamethasone Sod Phosphate 4 Mg/Ml Vial IVPUSH 6 mg DAILY CARYL Administration Enoxaparin Sodium 60 mg 02/20/20 08:45 02/26/20 07:24 Enoxaparin Sodium 60 Mg/0.6 Ml Syringe SUBCUT 60 mg Q12H CARYL Administration Famotidine 20 mg 02/22/20 21:00 02/26/20 07:25 Famotidine 20 Mg Tablet PO 20 mg BID CARYL Administration Guaifenesin/Codeine Phosphate 5 ml 02/24/20 12:00 02/26/20 07:23 Guaifen/Codeine Sf 200/20/10ml 10 Ml Liquid PO 5 ml Q4H CARYL Administration Remdesivir 100 mg/ Sodium 230 mls @ 115 mls/hr 02/20/20 14:00 02/25/20 18:13 Chloride IV Infused Q24H CARYL Infusion Melatonin 6 mg 02/20/20 21:00 02/25/20 21:07 Melatonin 3 Mg Tablet PO 6 mg BEDTIME CARYL Administration Ondansetron HCl 4 mg 02/18/20 18:26 Ondansetron Hcl 4 Mg/2 Ml Vial IVPUSH Q8H PRN Nausea and Vomiting Pharmacy Consult 1 each 02/18/20 15:20 Consult Rx Perform Med Rec MISCELLANE ONCE PRN Consult order Sodium Chloride 3 ml 02/18/20 18:26 02/26/20 07:23 0.9 % Sodium Chloride Flush 3 Ml Syringe IVFLUSH 3 ml QSHIFT CARYL Administration Zinc Sulfate 220 mg 02/20/20 09:00 02/26/20 07:25 Zinc Sulfate 220 Mg Capsule PO 220 mg DAILY CARYL Administration Labs CBC & Chem 7: 02/26/20 06:34 02/26/20 06:33 Labs: Laboratory Results - last 24 hr 02/26/20 02/26/20 02/26/20 06:33 06:33 06:34 WBC 8.0 RBC 4.79 Hgb 13.9 L Hct 40.7 L MCV 85.0 MCH 29.0 MCHC 34.2 RDW 12.4 Plt Count 442 H MPV 9.6 Immature Gran % (Auto) 0.9 H Neut % (Auto) 68.9 Lymph % (Auto) 21.7 [place] % (Auto) 7.5 Eos % (Auto) 0.9 Baso % (Auto) 0.1 Lymph # (Auto) 1.7 [place] # (Auto) 0.6 Eos # (Auto) 0.1 Baso # (Auto) 0.0 Abs Immat Gran (auto) 0.07 H Absolute Neuts (auto) 5.5 Absolute Nucleated RBC 0.000 Nucleated RBC % (auto) 0.0 D-Dimer Sodium 136 Potassium 4.5 Chloride 103 Carbon Dioxide 25 Anion Gap 13 BUN 22 H Creatinine 0.83 Estim Creat Clear Calc 139.3 Estimated GFR > 60 Random Glucose 91 Calcium 8.0 L Ferritin 597 H Total Bilirubin 0.5 AST 28 ALT 62 H Alkaline Phosphatase 53 Lactate Dehydrogenase 243 C-Reactive Protein 1.17 H Total Protein 5.7 L Albumin 3.0 L Procalcitonin 0.05 02/26/20 06:34 WBC RBC Hgb Hct MCV MCH MCHC RDW Plt Count MPV Immature Gran % (Auto) Neut % (Auto) Lymph % (Auto) [place] % (Auto) Eos % (Auto) Baso % (Auto) Lymph # (Auto) [place] # (Auto) Eos # (Auto) Baso # (Auto) Abs Immat Gran (auto) Absolute Neuts (auto) Absolute Nucleated RBC Nucleated RBC % (auto) D-Dimer 469 Sodium Potassium Chloride Carbon Dioxide Anion Gap BUN Creatinine Estim Creat Clear Calc Estimated GFR Random Glucose Calcium Ferritin Total Bilirubin AST ALT Alkaline Phosphatase Lactate Dehydrogenase C-Reactive Protein Total Protein Albumin Procalcitonin Microbiology Microbiology Results: Microbiology 02/18/20 12:52 Blood - Venous Blood Culture - Final No growth after 5 days. 02/18/20 12:57 Blood - Venous Blood Culture - Final No growth after 5 days. Assessment and Plan (1) COVID-19: Status: Acute (2) Pneumonia due to 2019-nCoV: Status: Acute Assessment and Plan: hospital d#8 49yo M with asthma admitted for acute hypoxic respiratory failure due to COVID- 19 pneumonia # severe COVID-19 pneumonia # acute hypoxic respiratory failure # viral sepsis - supplemental O2 via NC wean as tolerated, encouraged awake proning - dexamethasone d#09/30 - d/c remdesivir- got 6d - d/c ABX - s/p convalescent plasma x2 units 02/19 and 1/2 - on intermediate-dose LMWH 0.5 mg/kg q12h per Pulmonology recommendation # transaminasemia - mild, improving, likely due to COVID-19 # hyperK - resolved # asthma - prn DEISY via HFA
[2020-02-26 13:17] VITALS: BP 114/70; PULSE 61; RESP 20; TEMP 36.1; O2SAT 95
[2020-02-26 15:40] VITALS: BP 120/73; PULSE 74; RESP 20; TEMP 36.6; O2SAT 95
--- NOTE | 2020-02-26 18:06 | PC.NURSE ---
This RN weaned pt from 4L O2 via NC to 2L O2 via NC at 1600 with good response. Pt O2 sats 92-94%. Will continue to monitor.
[2020-02-26 20:00] VITALS: BP 110/78; PULSE 74; RESP 20; TEMP 36.7; O2SAT 93
[2020-02-26] MEDS: Melatonin 3 MG TABLET 6 MG PO (21:00)
[2020-02-27] VITALS (7 sets, daily range): BP systolic 107–149; BP diastolic 64–83; PULSE 61–87; RESP 18–20; TEMP 36.4–36.9; O2SAT 93–97
[2020-02-27] MEDS: 0.9 % Sodium Chloride Flush 3 ML SYRINGE IVFLUSH ×3 (01:17→16:05)
[2020-02-27] MEDS: guaiFEN/Codeine SF 200/20/10ML 10 ML LIQUID 5 ML PO ×5 (04:08→21:16)
[2020-02-27] MEDS: Enoxaparin Sodium 60 MG/0.6 ML SYRINGE SUBCUT ×2 (09:54→21:15)
[2020-02-27] MEDS: Zinc Sulfate 220 MG CAPSULE PO (09:55)
[2020-02-27] MEDS: Famotidine 20 MG TABLET PO ×2 (09:55→21:16)
[2020-02-27] MEDS: dexAMETHasone sod phosphate 4 MG/ML VIAL 6 MG IVPUSH (09:55)
[2020-02-27 12:23] LABS: Dexamethasone <20 ng/dL
--- NOTE | 2020-02-27 15:56 | MHC.CM.PN ---
Male 49 DX Covid+ DP home no services private transport. Pt is mary wean. Patient is now on 2L nc. Patient may be able to DC tomorrow. LOS R/T need for supplemental oxygen. CM will follow.
--- NOTE | 2020-02-27 16:41 | P.PNIM_ITS ---
Subjective Subjective Date of Service: 02/27/20 Interval History: Continues to improved. Weaned down to 2 L via nasal cannula. Physical Exam Vital Signs: Vital Signs: Last Vital Signs Temp 97.7 F 02/27/20 15:05 Pulse 80 02/27/20 15:05 Resp 19 02/27/20 15:05 BP 116/70 02/27/20 15:05 Pulse Ox 94 02/27/20 15:05 Body Mass Index 31.6 Gen: in no acute distress HEENT: sclera anicteric, moist mucus membranes Neck: supple Lungs: no respiratory distress, auscultation deferred due to COVID-19 Heart: normal peripheral pulses Abd: soft, non-tender, non-distended Ext: no cyanosis, clubbing, or edema Skin: warm/well-perfused Neuro: alert and oriented x3, no focal findings Psych: appropriate affect Objective Data Current Medications Generic Name Dose Route Start Last Admin Trade Name Freq PRN Reason Stop Dose Admin Acetaminophen 650 mg 02/18/20 18:26 02/22/20 14:40 Acetaminophen 325 Mg Tablet PO 650 mg Q6H PRN Administration Pain, Mild (Pain Scale 1-3) Albuterol Sulfate 2 puff 02/18/20 18:26 Albuterol Sulfate 90 Mcg 8 Gm Inhaler INHALE RQ4H PRN Wheezing Dexamethasone Sodium Phosphate 6 mg 02/26/20 09:00 02/27/20 09:55 Dexamethasone Sod Phosphate 4 Mg/Ml Vial IVPUSH 6 mg DAILY CARYL Administration Enoxaparin Sodium 60 mg 02/20/20 08:45 02/27/20 09:54 Enoxaparin Sodium 60 Mg/0.6 Ml Syringe SUBCUT 60 mg Q12H CARYL Administration Famotidine 20 mg 02/22/20 21:00 02/27/20 09:55 Famotidine 20 Mg Tablet PO 20 mg BID CARYL Administration Guaifenesin/Codeine Phosphate 5 ml 02/24/20 12:00 02/27/20 16:05 Guaifen/Codeine Sf 200/20/10ml 10 Ml Liquid PO 5 ml Q4H CARYL Administration Melatonin 6 mg 02/20/20 21:00 02/26/20 21:00 Melatonin 3 Mg Tablet PO 6 mg BEDTIME CARYL Administration Ondansetron HCl 4 mg 02/18/20 18:26 Ondansetron Hcl 4 Mg/2 Ml Vial IVPUSH Q8H PRN Nausea and Vomiting Pharmacy Consult 1 each 02/18/20 15:20 Consult Rx Perform Med Rec MISCELLANE ONCE PRN Consult order Sodium Chloride 3 ml 02/18/20 18:26 02/27/20 16:05 0.9 % Sodium Chloride Flush 3 Ml Syringe IVFLUSH 3 ml QSHIFT CARYL Administration Zinc Sulfate 220 mg 02/20/20 09:00 02/27/20 09:55 Zinc Sulfate 220 Mg Capsule PO 220 mg DAILY CARYL Administration Labs CBC & Chem 7: 02/26/20 06:34 02/26/20 06:33 Microbiology Microbiology Results: Microbiology 02/18/20 12:52 Blood - Venous Blood Culture - Final No growth after 5 days. 02/18/20 12:57 Blood - Venous Blood Culture - Final No growth after 5 days. Assessment and Plan (1) COVID-19: Status: Acute (2) Pneumonia due to 2019-nCoV: Status: Acute Assessment and Plan: hospital d#9 49yo M with asthma admitted for acute hypoxic respiratory failure due to COVID- 19 pneumonia # severe COVID-19 pneumonia # acute hypoxic respiratory failure # viral sepsis - supplemental O2 via NC wean as tolerated, encouraged awake proning - dexamethasone d#9/10 - d/c remdesivir- got 6d - d/c ABX - s/p convalescent plasma x2 units 02/19 and 1/2 - on intermediate-dose LMWH 0.5 mg/kg q12h per Pulmonology recommendation # transaminasemia - mild, improving, likely due to COVID-19 # hyperK - resolved # asthma - prn DEISY via HFA # dispo - hopefully home in next 1-2d but may require home O2
[2020-02-27] MEDS: Melatonin 3 MG TABLET 6 MG PO (21:16)
[2020-02-28] MEDS: guaiFEN/Codeine SF 200/20/10ML 10 ML LIQUID 5 ML PO ×4 (00:23→13:44)
[2020-02-28] MEDS: 0.9 % Sodium Chloride Flush 3 ML SYRINGE IVFLUSH ×2 (00:24→09:32)
[2020-02-28 03:54] VITALS: BP 129/83; PULSE 57; RESP 18; TEMP 36.6; O2SAT 99
[2020-02-28 08:00] VITALS: BP 112/70; PULSE 73; RESP 20; TEMP 36.7; O2SAT 96
[2020-02-28 09:00] VITALS: PULSE 102; PULSE 111; PULSE 79; PULSE 97; O2SAT 88; O2SAT 95
[2020-02-28] MEDS: Famotidine 20 MG TABLET PO (09:30)
[2020-02-28] MEDS: Zinc Sulfate 220 MG CAPSULE PO (09:30)
[2020-02-28] MEDS: dexAMETHasone sod phosphate 4 MG/ML VIAL 6 MG IVPUSH (09:31)
[2020-02-28] MEDS: Enoxaparin Sodium 60 MG/0.6 ML SYRINGE SUBCUT (09:31)
--- NOTE | 2020-02-28 11:57 | W.MHC.F2F ---
Service Date Service Date: 02/28/20 Encounter Date of encounter: 02/28/20 Reasons for Services Signs and symptoms assessed: hypoxia, respiratory status Reason for penitentiary: teach disease management and other (new home oxygen requirement) Reason for physical therapy: home safety and mobility, therapeutic exercises, gait/transfer training, assess need for DME, ADL training and energy conservation MD Overseeing Care: Yonatan Frazier Homebound: Leaving the home is medically contraindicated at this time without the asist of a device and/or another person due th the listed conditions above and below. Reason homebound: shortness of breath with minimal effort, shortness of breath at rest and weakness related to hospital stay Homebound supporting statement: Mr Mark was admitted to [facility] 02/18/20-02/28/20 with hypoxia from COVID-19 pneumonia. He will be discharged home with 2 liters of oxygen with ambulation. Certification: Based on the above findings, I certify that this patient is confined to the home and needs intermittent penitentiary care, physical therapy and/or speech therapy, or continues to need occupational therapy. The patient is under my care, and I have initiated the establishment of the plan of care. The patient will be followed by a physician who will periodically review the plan of care.
[2020-02-28 12:00] VITALS: BP 113/72; PULSE 100; RESP 22; TEMP 36.6; O2SAT 91
--- NOTE | 2020-02-28 12:09 | MHC.CM.PN ---
Patient will be discharging home today new on O2. CM spoke with patient and referral sent to [facility] per patient request. CM will continue to follow patient for discharge needs.
--- NOTE | 2020-02-28 12:31 | MHC.CM.PN ---
Patient will be discharged home today new on O2 and will have [facility] for nursing. [facility] will provide transportation.
--- NOTE | 2020-02-28 17:54 | PM.DS ---
DS: Providers Provider Date of Service: 02/28/20 Date of admission: 02/18/20 15:51 Primary care physician: Santiago Ramon MD Consults: 02/18/20 18:26 Consult to Infectious Diseases Routine Consulting Provider: Fanta Bernardo Reason for consultation: covid, hypoxia Has provider been notified: No 02/20/20 07:19 Consult to Pulmonology Routine Consulting Provider: Roger Mendoza Reason for consultation: acute hypoxemic respiratory failure / covid pneumonia DS: Diagnosis Discharge Diagnosis (1) COVID-19: Status: Acute (2) Pneumonia due to 2019-nCoV: Status: Acute (3) Acute respiratory failure with hypoxia: Status: Acute DS: Medications Discharge Medications Home Medications: Home Medications Medication Instructions Recorded Confirmed Breo Ellipta 1 inh INHALATION DAILY 02/18/20 02/18/20 albuterol sulfate 2 puff INHALATION Q4H 02/18/20 02/18/20 tadalafil 1 tab PO NEEDED 02/18/20 02/18/20 DS: Summary Hospital Course Hospital Course: from H+P by admitting hospitalist Anitha Mendoza, 02/18/20: 49 year old man presenting with shortness of breath that started one week ago. He believes he was exposed to covid-19 from a coworker. He went to [facility] last Tuesday and had a covid test hat subsequently came back positive. He went to [facility] and was sent home with prednisone. He reported continuing shortness of breath over the last few days. He has a history of asthma. He reports dry cough, fever, heavy chest, nausea, diarrhea. In the ED, he had a fever of 101.7, and chest xray showed diffuse bilateral patchy opacities in mid and lower lobes. He was given dexamethasone, rocephin and azithromycin. He will be admitted with hypoxic respiratory failure secondary to covid 19. The patient was admitted to the isolation unit. He was treated with supplemental oxygen, 10 days of dexamethasone, 5 days of remdesivir, and 2 units of convalescent plasma along with intermediate-dose anticoagulation. He improved markedly and was weaned to 2L O2 with ambulation. He was discharged home with strict return precautions and instructed to follow up with his primary care doctor in 1 week. Time Spent with Patient Time attestation: Total time spent providing and/or coordinating discharge services: 40 Discharge coordination time: Greater than 30 minutes Physical Exam Vital Signs: Vital Signs: Last Vital Signs Temp 97.8 F 02/28/20 12:00 Pulse 100 02/28/20 12:00 Resp 22 H 02/28/20 12:00 BP 113/72 02/28/20 12:00 Pulse Ox 91 L 02/28/20 12:00 Body Mass Index 31.6 Gen: in no acute distress HEENT: sclera anicteric, moist mucus membranes Neck: supple Lungs: no respiratory distress, auscultation deferred due to COVID-19 Heart: normal peripheral pulses Abd: soft, non-tender, non-distended Ext: no cyanosis, clubbing, or edema Skin: warm/well-perfused Neuro: alert and oriented x3, no focal findings Psych: appropriate affect DS: Data Data Completed and Pending Labs on day of discharge: Laboratory Results WBC 8.0 X10*3/uL (4.8-10.8) 02/26/20 06:34 RBC 4.79 X10*6/uL (4.60-5.80) 02/26/20 06:34 Hgb 13.9 g/dl (14.0-18.0) L 02/26/20 06:34 Hct 40.7 % (42-52) L 02/26/20 06:34 MCV 85.0 fL (80-98) 02/26/20 06:34 MCH 29.0 pg (27.0-33.0) 02/26/20 06:34 MCHC 34.2 g/dl (31.0-36.0) 02/26/20 06:34 RDW 12.4 % (11.0-16.0) 02/26/20 06:34 Plt Count 442 X10*3/uL (160-400) H 02/26/20 06:34 MPV 9.6 fL (9.4-12.4) 02/26/20 06:34 Immature Gran % (Auto) 0.9 % (0.0-0.4) H 02/26/20 06:34 Neut % (Auto) 68.9 % (45-73) 02/26/20 06:34 Lymph % (Auto) 21.7 % (20-40) 02/26/20 06:34 [place] % (Auto) 7.5 % (2-11) 02/26/20 06:34 Eos % (Auto) 0.9 % (0-4) 02/26/20 06:34 Baso % (Auto) 0.1 % (0-2) 02/26/20 06:34 Lymph # (Auto) 1.7 X10*3/uL (1.2-4.9) 02/26/20 06:34 [place] # (Auto) 0.6 X10*3/uL (0.1-1.2) 02/26/20 06:34 Eos # (Auto) 0.1 X10*3/uL (0.0-0.4) 02/26/20 06:34 Baso # (Auto) 0.0 X10*3/uL (0.0-0.2) 02/26/20 06:34 Abs Immat Gran (auto) 0.07 X10*3/uL (0.00-0.03) H 02/26/20 06:34 Absolute Neuts (auto) 5.5 X10*3/uL (2.0-8.3) 02/26/20 06:34 Absolute Nucleated RBC 0.000 X10*3/uL (0.0-0.012) 02/26/20 06:34 Nucleated RBC % (auto) 0.0 /100WBC (0.0-0.2) 02/26/20 06:34 Smear Tech's Comments VERIFIED 02/18/20 12:52 PT 13.6 SEC (10.8-13.0) H 02/21/20 05:45 INR 1.1 (0.9-1.1) 02/21/20 05:45 APTT 28.5 SEC (24.1-38.0) 02/20/20 08:11 D-Dimer 469 NG/ML 02/26/20 06:34 VBG pH 7.41 (7.32-7.43) 02/20/20 08:11 VBG pCO2 39 mmhg 02/20/20 08:11 VBG pO2 39 mmhg 02/20/20 08:11 VBG HCO3 24 mmol/L 02/20/20 08:11 VBG O2 Saturation 77.0 % 02/20/20 08:11 VBG Base Excess -0.3 mmol/L 02/20/20 08:11 Sodium 136 mmol/L (135-145) 02/26/20 06:33 Potassium 4.5 mmol/l (3.3-5.1) 02/26/20 06:33 Chloride 103 mmol/L (96-108) 02/26/20 06:33 Carbon Dioxide 25 mmol/L (22-29) 02/26/20 06:33 Anion Gap 13 (12-20) 02/26/20 06:33 BUN 22 mg/dL (9-16) H 02/26/20 06:33 Creatinine 0.83 mg/dL (0.5-1.4) 02/26/20 06:33 Estim Creat Clear Calc 139.3 02/26/20 06:33 Estimated GFR > 60 02/26/20 06:33 Random Glucose 91 mg/dL (60-115) 02/26/20 06:33 Lactic Acid 3.6 mmol/L (0.5-2.0) H* 02/18/20 12:52 Lactic Acid Fup @ 2Hr 2.6 mmol/L (0.5-2.0) H* 02/18/20 15:08 Lactic Acid Fup @ 4Hr 3.1 mmol/L (0.5-2.0) H* 02/18/20 17:36 Calcium 8.0 mg/dL (8.4-10.2) L 02/26/20 06:33 Ferritin 597 ng/mL (20-250) H 02/26/20 06:33 Total Bilirubin 0.5 mg/dL (0.0-1.0) 02/26/20 06:33 Direct Bilirubin 0.3 mg/dL (0.0-0.5) 02/25/20 06:12 AST 28 U/L (5-37) 02/26/20 06:33 ALT 62 U/L (0-40) H 02/26/20 06:33 Alkaline Phosphatase 53 U/L (39-117) 02/26/20 06:33 Lactate Dehydrogenase 243 U/L (118-273) 02/26/20 06:33 Troponin I High Sens < 3.5 ng/L (<3.5-35.0) 02/18/20 13:28 C-Reactive Protein 1.17 mg/dL (< or = 0.50) H 02/26/20 06:33 Total Protein 5.7 g/dL (6.5-8.0) L 02/26/20 06:33 Albumin 3.0 g/dL (3.5-5.0) L 02/26/20 06:33 Procalcitonin 0.05 ng/mL 02/26/20 06:33 Dexamethasone <20 ng/dL 02/18/20 19:02 COVID-19 ([facility]) Positive (Negative) A 02/18/20 16:40 COVID-19 Clin Com See Note 02/18/20 16:40 Blood Type A Negative 02/20/20 11:19 Antibody Screen NEGATIVE 02/20/20 11:19 Impressions Chest X-Ray 02/21/20 00:00 IMPRESSION: Interval worsening of infiltrates in both lungs especially left upper mid lung region. Discharge Plan Discharge Anticipated Discharge Date/Time: 02/28/20 11:51 Patient Disposition: Home Health Service Referrals: [facility] [Outside] Santiago Ramon MD [Primary Care Provider] - Discharge Medications: Continued albuterol sulfate 90 mcg/actuation HFA aerosol inhaler 2 puff inhalation Q4H RF: 0 tadalafil 20 mg tablet 1 tab PO NEEDED RF: 0 Breo Ellipta 200-25 mcg/dose blister with device 1 inh inhalation DAILY RF: 0 Discontinued prednisone 10 mg tablet 5 tab PO DAILY RF: 0 azithromycin 250 mg tablet 1 dose pk PO DIRECTED RF: 0 Discharge Orders: Discharge Order (Routine); Ordered 02/28/20 Ordered By: Lindsey Roberts Diet: advance to usual diet Activity on Discharge: As tolerated Patient Instructions: COVID-19 (Coronavirus Disease 2019) (DC) Discharge Date/Time: 02/28/20 14:20 Visit Report Forms: Patient Portal Discharge page Care Plan Goals: resolution of pneumonia Health Concerns: COVID-19 pneumonia, hypoxia Plan of Treatment: you completed 10 days of dexamethasone [steroid] in the hospital you also received 2 units of convalescent plasma and 5 days of remdesivir home with 2 liters of oxygen with ambulation follow up with your primary care doctor in 1 week per CDC isolation precautions, you have completed 20 days of isolation since onset of symptoms and are thus released from isolation return to the ED should you have worsening shortness of breath, dizziness/lightheadedness, or chest pain
== END 2020-02-28 14:20 | disposition home health service (06) | DRG 720 ==
LOC: HO.ED 12:41 → HO.IMC 17:04
PROVIDERS: Hospitalist; Internal Medicine; Nurse Practitioner Acute Care; Physician Assistant; Admitting Provider Internal Medicine; Emergency Provider Emergency Medicine Emergency Medical Services; PCP Internal Medicine; Visit Provider Family Medicine
DX: A41.89 Other specified sepsis (principal); U07.1 COVID-19; J96.01 Acute respiratory failure with hypoxia; J45.909 Unspecified asthma, uncomplicated; R74.01 Elevation of levels of liver transaminase levels; R65.20 Severe sepsis without septic shock; E87.5 Hyperkalemia; Z79.899 Other long term (current) drug therapy
CPT/HCPCS: 36415; 71045; 80048; 80053; 80076; 80299; 82728; 82803; 83605; 83615; 84145; 84484; 85025; 85027; 85379; 85610; 85730; 86140; 86850; 86900; 86901; 87040; 87635; 93005; 94640; 96365; 96366; 96367; 99285; J0696; J1100; J1650; J3475; J3490

== ENCOUNTER → 2020-09-19 08:54 | Outpatient (BNVA) | payer BC, SELFPAY | PROVIDERS: Visit Provider Physician Assistant | DX: M75.42 Impingement syndrome of left shoulder (principal) | CPT/HCPCS: J1040 ==